=== PATIENT | female | born 1945 | race Caucasian/White ===

== ENCOUNTER 2017-01-09 19:12 | Inpatient (IN) | payer OTHER ==
[~2017-01-09] VITALS: Ht 154.9 cm; Wt 51.7 kg
[~2017-01-09 19:12] MED LIST: ACET-5634 PO; BACTO TP; CLON1TAB PO; Dressing, Gauze TP; FLUO-387 PO; PARO40TA1 PO; SOLI5TAB PO; TIZA4CAP PO; TRAZ-286 PO; [UNRECOGNIZED DRUG - CODE] TD
[2017-01-09 19:21] VITALS: BP 147/87
[2017-01-09] MEDS ORDERED: NACL 0.9% 1,000 ML IV ONE (19:50)
[2017-01-09] MEDS ORDERED: MORPHINE SULFATE 4 MG/ML SYR IVP ONE (19:50)
[2017-01-09 20:20] LABS: APPEARANCE,URINE CLEAR (CLEAR); BILIRUBIN,URINE NEGATIVE (NEGATIVE); BLOOD, URINE NEGATIVE (NEGATIVE); COLOR,URINE YELLOW (YELLOW); LEUKOCYTE ESTERASE ,URINE NEGATIVE (NEGATIVE); NITRITE, URINE NEGATIVE (NEGATIVE); UGLUCOSE NEGATIVE (NEGATIVE)
[2017-01-09 20:21] LABS: BASOPHILS # (AUTO) 0.1 K/uL (0.00-0.22); BASOPHILS % (AUTO) 1.4 % (0.0-2.0); EOSINOPHILS # (AUTO) 0.1 K/uL (0-0.4); EOSINOPHILS % (AUTO) 1.7 % (0.0-4.0); HEMATOCRIT 41.5 % (36-48); HEMOGLOBIN 13.4 g/dL (12.0-16.0); LYMPHOCYTES # (AUTO) 1.3 K/uL (2.5-16.5); LYMPHOCYTES % (AUTO) 20.7 % (20.5-51.1); MEAN CORPUSCULAR HEMOGLOBIN 28 pg (27-31); MEAN CORPUSCULAR HGB CONC 32 g/dL (33-37); MEAN CORPUSCULAR VOLUME 87 fL (80-94); MONOCYTES # (AUTO) 0.4 K/uL (0.8-1.0); MONOCYTES % (AUTO) 7.2 % (1.7-9.3); NEUTROPHILS # (AUTO) 4.2 K/uL (1.8-7.7); PLATELET COUNT (AUTO) 123 K/uL (140-450); RED BLOOD CELL COUNT(AUTO) 4.75 MIL/uL (4.20-5.40); RED CELL DISTRIBUTION WIDTH 13.6 % (11.6-13.7); WHITE BLOOD COUNT (AUTO) 6.1 K/uL (4.8-10.8)
[2017-01-09] MEDS ORDERED: diphenhydrAMINE 50 MG/ML VIAL IVP ONE (20:25)
[2017-01-09 20:34] LABS: ALBUMIN 3.4 g/dL (3.4-5.0); AMYLASE 37 U/L (25-115); ANION GAP 3.1 (8-16); ASPARTATE AMINOTRANSFERASE 18 U/L (15-37); CARBON DIOXIDE 39.2 mmol/L (21-32); CHLORIDE 100 mmol/L (98-107); CREATININE 0.6 mg/dL (0.6-1.3); GLUCOSE 138 mg/dL (74-106); LIPASE 47 U/L (73-393); POTASSIUM 4.3 mmol/L (3.5-5.1); SODIUM SERUM 138 mmol/L (136-145); TOTAL BILIRUBIN 0.3 mg/dL (0.0-1.0); UREA NITROGEN, BLOOD 15 mg/dL (7-18)
[2017-01-09] MEDS: NACL 0.9% 1,000 ML IV SCH (22:37)
[2017-01-09] MEDS ORDERED: ONDANSETRON 4 MG/2 ML VIAL IVP PRN (22:40)
[2017-01-09] MEDS ORDERED: ACETAMINOPHEN 325 MG TAB PO PRN (22:40)
[2017-01-09 23:11] LABS: PROTHROMBIN TIME 9.6 secs (10.8-13.4)
[2017-01-09 23:20] LABS: CHOL/HDL RATIO 1.7 (1-4.5); FREE T4 (FREE THYROXINE) 0.94 ng/dL (0.76-1.46); PHOSPHORUS 4.2 mg/dL (2.5-4.9); THYROID STIMULATING HORMONE 0.42 uIU/mL (0.34-3.74)
[2017-01-10] VITALS: BP 139/93
[2017-01-10] MEDS ORDERED: SODIUM PHOSPHATE 118 ML ENEM RC PRN (00:10)
[2017-01-10] MEDS: NACL 0.9% 1,000 ML IV SCH (00:35)
[2017-01-10] MEDS: HYDROcodone/APAP 7.5/325 MG 1 TAB PO PRN ×2 (03:05→09:08)
[2017-01-10] MEDS ORDERED: PNEUMOCOCCAL VACCINE 23 MCG/0.5 ML VIAL IMVAC SCH ×2 (03:50→05:50)
[2017-01-10] MEDS ORDERED: INFLUENZA VIRUS VACCINE QUAD 0.5 ML SYR IMVAC SCH ×2 (03:50→05:50)
[2017-01-10 04:00] VITALS: BP 127/73
[2017-01-10 07:33] LABS: BASOPHILS # (AUTO) 0.2 K/uL (0.00-0.22); EOSINOPHILS # (AUTO) 0.2 K/uL (0-0.4); EOSINOPHILS % (AUTO) 3.4 % (0.0-4.0); HEMATOCRIT 37.4 % (36-48); HEMOGLOBIN 12.3 g/dL (12.0-16.0); LYMPHOCYTES # (AUTO) 1.3 K/uL (2.5-16.5); LYMPHOCYTES % (AUTO) 23.4 % (20.5-51.1); MEAN CORPUSCULAR HEMOGLOBIN 29 pg (27-31); MEAN CORPUSCULAR HGB CONC 33 g/dL (33-37); MEAN CORPUSCULAR VOLUME 87 fL (80-94); MONOCYTES # (AUTO) 0.5 K/uL (0.8-1.0); MONOCYTES % (AUTO) 8.8 % (1.7-9.3); NEUTROPHILS # (AUTO) 3.5 K/uL (1.8-7.7); NEUTROPHILS % (AUTO) 61.4 % (42.2-75.2); PLATELET COUNT (AUTO) 117 K/uL (140-450); RED CELL DISTRIBUTION WIDTH 13.2 % (11.6-13.7); WHITE BLOOD COUNT (AUTO) 5.7 K/uL (4.8-10.8)
[2017-01-10 08:00] VITALS: BP 127/76
[2017-01-10 08:01] LABS: ANION GAP 3.5 (8-16); CARBON DIOXIDE 37.3 mmol/L (21-32); CHLORIDE 102 mmol/L (98-107); CREATININE 0.5 mg/dL (0.6-1.3); GLUCOSE 101 mg/dL (74-106); POTASSIUM 3.8 mmol/L (3.5-5.1); SODIUM SERUM 139 mmol/L (136-145); UREA NITROGEN, BLOOD 10 mg/dL (7-18)
[2017-01-10 08:04] LABS: MAGNESIUM 1.7 mg/dL (1.8-2.4); PHOSPHORUS 3.1 mg/dL (2.5-4.9)
[2017-01-10] MEDS: DOCUSATE SODIUM 100 MG GELCAP PO SCH ×2 (09:08→20:40)
[2017-01-10 12:00] VITALS: BP 129/84
[2017-01-10] MEDS: KETOROLAC 15 MG/ML VIAL IVP PRN ×2 (12:40→18:21)
[2017-01-10] MEDS ORDERED: MAG SULF 2000 MG/WATER PREMIX 50 ML IV SCH (15:00)
[2017-01-10 16:17] VITALS: BP 145/85
[2017-01-10] MEDS ORDERED: MSCON30 PO (17:10)
[2017-01-10] MEDS ORDERED: MORPHINE PO (17:13)
[2017-01-10] MEDS ORDERED: Morphine (17:13)
[2017-01-10] MEDS ORDERED: BISACODYL 10 MG SUPP RC SCH (18:55)
[2017-01-10] MEDS ORDERED: SODIUM PHOSPHATE 118 ML ENEM RC SCH (19:00)
[2017-01-10 20:00] VITALS: BP 127/78
[2017-01-10] MEDS ORDERED: MORPHINE TAB ER 30 MG TABER PO SCH (20:20)
[2017-01-10] MEDS ORDERED: ZOLPIDEM 5 MG TAB PO SCH (20:50)
[2017-01-10] MEDS ORDERED: MORPHINE TAB ER 30 MG TABER PO ONE (21:28)
[2017-01-11] VITALS: BP 118/70
[2017-01-11] MEDS: KETOROLAC 15 MG/ML VIAL IVP PRN (00:55)
[2017-01-11] MEDS: NACL 0.9% 1,000 ML IV SCH (01:30)
[2017-01-11 04:00] VITALS: BP 125/72
[2017-01-11 07:23] LABS: BASOPHILS # (AUTO) 0.2 K/uL (0.00-0.22); BASOPHILS % (AUTO) 4.1 % (0.0-2.0); EOSINOPHILS # (AUTO) 0.2 K/uL (0-0.4); EOSINOPHILS % (AUTO) 3.2 % (0.0-4.0); HEMATOCRIT 36.2 % (36-48); HEMOGLOBIN 11.8 g/dL (12.0-16.0); LYMPHOCYTES # (AUTO) 1.3 K/uL (2.5-16.5); LYMPHOCYTES % (AUTO) 24.4 % (20.5-51.1); MEAN CORPUSCULAR HEMOGLOBIN 28 pg (27-31); MEAN CORPUSCULAR HGB CONC 33 g/dL (33-37); MEAN CORPUSCULAR VOLUME 87 fL (80-94); MONOCYTES # (AUTO) 0.7 K/uL (0.8-1.0); MONOCYTES % (AUTO) 12.2 % (1.7-9.3); NEUTROPHILS % (AUTO) 56.1 % (42.2-75.2); PLATELET COUNT (AUTO) 149 K/uL (140-450); RED BLOOD CELL COUNT(AUTO) 4.17 MIL/uL (4.20-5.40); RED CELL DISTRIBUTION WIDTH 12.9 % (11.6-13.7); WHITE BLOOD COUNT (AUTO) 5.4 K/uL (4.8-10.8)
[2017-01-11 07:49] VITALS: BP 126/81
[2017-01-11 08:10] LABS: CREATININE 0.5 mg/dL (0.6-1.3); GLUCOSE 71 mg/dL (74-106); UREA NITROGEN, BLOOD 13 mg/dL (7-18)
[2017-01-11 08:15] LABS: CHLORIDE 103 mmol/L (98-107); POTASSIUM 3.8 mmol/L (3.5-5.1)
[2017-01-11 08:30] LABS: CARBON DIOXIDE 32.7 mmol/L (21-32); SODIUM SERUM 137 mmol/L (136-145)
[2017-01-11] MEDS ORDERED: TAMSULOSIN 0.4 MG CAP PO SCH (08:30)
[2017-01-11 08:31] LABS: ANION GAP 5.1 (8-16)
[2017-01-11] MEDS ORDERED: NICOTINE TRANSD SYS 21 MG/24 HR PATCH TD SCH (09:00)
[2017-01-11] MEDS ORDERED: MORPHINE TAB ER 30 MG TABER PO SCH (09:00)
[2017-01-11] MEDS: DOCUSATE SODIUM 100 MG GELCAP PO SCH (09:33)
[2017-01-11] MEDS ORDERED: BISACODYL 10 MG SUPP RC SCH (10:44)
[2017-01-11 12:00] VITALS: BP 115/72
[2017-01-11] MEDS ORDERED: MAGNESIUM CITRATE 300 ML BTL PO SCH (13:15)
[2017-01-11] MEDS ORDERED: MORPHINE SULFATE ORAL SOLN 2 MG/ML UDC PO PRN (13:20)
[2017-01-11] MEDS ORDERED: DOCU-299 PO (13:37)
== END 2017-01-11 15:10 | disposition home or self-care (01) | DRG 391 ==
LOC: MED 19:12 → MTU 22:42
PROVIDERS: ADMIT Family Medicine Sports Medicine; ATTEND Family Medicine Sports Medicine
DX: K59.03 Drug induced constipation (principal); N17.0 Acute kidney failure with tubular necrosis; L89.151 Pressure ulcer of sacral region, stage 1; D69.6 Thrombocytopenia, unspecified; Z99.81 Dependence on supplemental oxygen; K83.1 Obstruction of bile duct; F03.90 Unspecified dementia, unspecified severity, without behavioral disturbance, psychotic disturbance, mood disturbance, and anxiety; N28.1 Cyst of kidney, acquired; E83.42 Hypomagnesemia; T39.8X5A Adverse effect of other nonopioid analgesics and antipyretics, not elsewhere classified, initial encounter; J44.9 Chronic obstructive pulmonary disease, unspecified; F41.9 Anxiety disorder, unspecified; F32.9 Major depressive disorder, single episode, unspecified; N20.0 Calculus of kidney; F17.210 Nicotine dependence, cigarettes, uncomplicated; G89.29 Other chronic pain; Z83.3 Family history of diabetes mellitus; Z80.3 Family history of malignant neoplasm of breast
CPT/HCPCS: 36415; 71010; 74000; 76705; 80048; 80053; 81003; 82150; 83036; 83690; 83735; 83880; 84100; 84439; 84443; 84484; 85025; 85610; 85730; 87081; 90658; 90732; 93005; 96361; 96374; 96375; 99285; J1200; J1885; J2270; J3475; J7030; Q0092

== ENCOUNTER 2017-04-09 15:25 | Inpatient (IN) | payer OTHER ==
--- NOTE | 2017-04-06 20:16 | NUR ---
PATIENT REFUSED SCD EDUCATION GIVEN THAT ITS TO PREVENT BLOOD CLOTS AND ALSO GOOD FOR CIRCULATION PATIENT REFUSED. Addendum: 04/18/17 at 0604 by Liliana Faith LVN WRONG DATE ACTUAL DATE 04/17/17
[~2017-04-09] VITALS: Ht 154.9 cm; Wt 48.1 kg
[~2017-04-09 15:25] MED LIST changes: -ACET-5634 PO; -BACTO TP; -CLON1TAB PO; +DOCU-299 PO; -Dressing, Gauze TP; -FLUO-387 PO; +MORPHINE PO; +MSCON30 PO; -PARO40TA1 PO; -SOLI5TAB PO; -TIZA4CAP PO; -TRAZ-286 PO; -[UNRECOGNIZED DRUG - CODE] TD
--- NOTE | 2017-04-09 15:25 | NUR ---
Patient BIBA ACLS, transferred to bed 1. RN evaluating patient at bedside.
[2017-04-09 15:30] VITALS: BP 102/66
--- NOTE | 2017-04-09 15:48 | NUR ---
71 YO FEMALE BIB EMS FROM HOME FOR ACUTE ONSET OF SOB, CHRONIC SMOKER. PT WITH MILD RETRACTIONS, NASAL FLARING, REPORTS SOB WITH MILD EXERTION. SCIENCE AND OPERATIONS OFFICER COUGH X 1 WEEK, PREGOGRESSIVELY GETTING WORSE. LS-CLR, BUT RHOCHI COUGH HEARD AT BEDSIDE. PTUNABLE TO COUGH ANY PHLEGM. PT DENIES ANY FEVERS.CHILLS, BUT ADMITS TO BEING A HEAVY SMOKER. ALTHOUGH WARNED OF HER OXYGEN AND SMOKING, PT STILL REFUSES TO STOP SMOKING. RT AT BEDSIDE FOR TX. PT DENIES ANY CHEST PAIN, SKIN W/D/I
[2017-04-09] MEDS ORDERED: ALBUTEROL SULFATE/IPRATROPIU 3 ML SOL IH ONE (15:50)
[2017-04-09 16:10] LABS: BASOPHILS # (AUTO) 0.1 K/uL (0.00-0.22); BASOPHILS % (AUTO) 0.7 % (0.0-2.0); EOSINOPHILS # (AUTO) 0.1 K/uL (0-0.4); EOSINOPHILS % (AUTO) 1.7 % (0.0-4.0); HEMATOCRIT 38.7 % (36-48); HEMOGLOBIN 12.7 g/dL (12.0-16.0); LYMPHOCYTES # (AUTO) 1.3 K/uL (2.5-16.5); LYMPHOCYTES % (AUTO) 16.3 % (20.5-51.1); MEAN CORPUSCULAR HEMOGLOBIN 28 pg (27-31); MEAN CORPUSCULAR HGB CONC 33 g/dL (33-37); MEAN CORPUSCULAR VOLUME 85 fL (80-94); MONOCYTES # (AUTO) 0.8 K/uL (0.8-1.0); MONOCYTES % (AUTO) 10.5 % (1.7-9.3); NEUTROPHILS # (AUTO) 5.4 K/uL (1.8-7.7); NEUTROPHILS % (AUTO) 70.8 % (42.2-75.2); PLATELET COUNT (AUTO) 315 K/uL (140-450); RED BLOOD CELL COUNT(AUTO) 4.54 MIL/uL (4.20-5.40); RED CELL DISTRIBUTION WIDTH 14.3 % (11.6-13.7); WHITE BLOOD COUNT (AUTO) 7.7 K/uL (4.8-10.8)
[2017-04-09 16:23] LABS: PROTHROMBIN TIME 9.4 secs (10.8-13.4)
[2017-04-09 16:29] LABS: ALBUMIN 3.1 g/dL (3.4-5.0); ANION GAP 9.2 (8-16); ASPARTATE AMINOTRANSFERASE 18 U/L (15-37); CARBON DIOXIDE 34.8 mmol/L (21-32); CHLORIDE 104 mmol/L (98-107); CREATININE 0.5 mg/dL (0.6-1.3); GLUCOSE 99 mg/dL (74-106); SODIUM SERUM 143 mmol/L (136-145); TOTAL BILIRUBIN 0.2 mg/dL (0.0-1.0); UREA NITROGEN, BLOOD 30 mg/dL (7-18)
--- NOTE | 2017-04-09 16:53 | NUR ---
PT AND HER FAMILY UPDATED ON PLAN OF CARE, VERBALIZED UNDERSTANDING.
[2017-04-09] MEDS: NACL 0.9% 1,000 ML IV SCH (17:36)
[2017-04-09] MEDS ORDERED: ONDANSETRON 4 MG/2 ML VIAL IVP PRN (17:40)
[2017-04-09] MEDS ORDERED: ALBUTEROL SULFATE/IPRATROPIU 3 ML SOL IH PRN (17:40)
[2017-04-09] MEDS ORDERED: ACETAMINOPHEN 325 MG TAB PO PRN (17:40)
[2017-04-09] MEDS ORDERED: DOCUSATE SODIUM 100 MG GELCAP PO PRN (17:40)
--- NOTE | 2017-04-09 18:30 | NUR ---
RECEIVED REPORT FROM HEMANT SAAVEDRA. PATIENT BROUGHT TO UNIT VIA [facility] FROM ER. ON NASAL CANNULA AT 2L. RESPIRATORY EFFORT EVEN AND UNLABORED. NO SIGNS AND SYMPTOMS OF ACUTE DISTRESS NOTED AT THIS TIME. PATIENT WALKED FROM [facility] TO HER BED, TOLERATED WELL. VITAL SIGNS ARE STABLE. HAS IV 20G TO RIGHT AC ON SALINE LOCK. ORIENTED PATIENT TO ROOM, AND EXPLAINED CALL LIGHT TO HER. BED IN LOWEST POSITION, SIDE RAILS UP X2, CALL LIGHT PLACED WITHIN REACH. DISCUSSED PLAN OF CARE WITH PATIENT AND SHE VERBALIZED UNDERSTANDING. WILL CONTINUE TO MONITOR.
[2017-04-09 18:47] LABS: CHOL/HDL RATIO 1.6 (1-4.5); FREE T4 (FREE THYROXINE) 1.02 ng/dL (0.76-1.46); MAGNESIUM 2.1 mg/dL (1.8-2.4); PHOSPHORUS 3.7 mg/dL (2.5-4.9); THYROID STIMULATING HORMONE 0.74 uIU/mL (0.34-3.74)
--- NOTE | 2017-04-09 19:21 | NUR ---
Patient to be transferred to [facility], [place]. Is being transferred due to . Receiving facility has accepting physician and available space. ER physician has signed transfer form. Patient or responsible constitution party has agreed to transfer and signed form. Patient belongings inventoried and will be sent with patient. Copy of nursing notes, lab reports, EKG, Physicians Orders and X-rays to be sent with patient. Report called to at receiving facility.
--- NOTE | 2017-04-09 19:25 | NUR ---
RECEIVED FROM AM RN IN BED FOR ADMISSION. AWAKE AND ALERT. ABLE TO VERBALIZE NEEDS WELL. DX. COPD EXACERBATION. TELEMETRY MONITORING. WITH HX. DEMENTIA. CARE PLANS DISCUSSED WITH HER FOR THE NIGHT AND ORIENTED TO SURROUNDINGS, CARE GIVERS AND CALL LIGHT. PT. WITH NO SOB AT THIS TIME. WITH 02 AT 2 LPM/NC. 02 SAT AT 97 %. AFEBRILE.
--- NOTE | 2017-04-09 19:25 | NUR ---
ENDORSED PATIENT TO CURRICULUM DEVELOPER RN FOR CONTINUITY OF CARE. PATIENT IN STABLE CONDITION.
[2017-04-09] MEDS: ALBUTEROL SULFATE/IPRATROPIU 3 ML SOL IH SCH (19:35)
[2017-04-09] MEDS ORDERED: MORPHINE TAB ER 30 MG TABER PO SCH (20:30)
[2017-04-09] MEDS ORDERED: methylPREDNISolone SS 125 MG/2 ML VIAL ONE (21:08)
[2017-04-09 21:15] VITALS: BP 107/72
[2017-04-09] MEDS: methylPREDNISolone SS 125 MG/2 ML VIAL IVP SCH (21:27)
[2017-04-09] MEDS: ZOLPIDEM 5 MG TAB PO PRN (21:38)
[2017-04-09] MEDS ORDERED: MORPHINE SULFATE ORAL SOLN 2 MG/ML UDC PO PRN (22:55)
--- NOTE | 2017-04-09 23:07 | NUR ---
DAUGHTER IN HERE AND BROUGHT PT.S LIQUID MORPHINE MEDICATION. RESIDENT MD BARRIENTOS AWARE OF IT.
--- NOTE | 2017-04-09 23:21 | NUR ---
STILL AWAKE AND URINATED IN BEDPAN. ASSISTED. DAUGHTER WENT HOME AND LEFT MEDICINE MORPHINE LIQUID IN HERE. SHOWED IT TO RESIDENT. AWARE.
[2017-04-10 00:21] VITALS: BP 110/76
[2017-04-10] MEDS ORDERED: methylPREDNISolone SS 125 MG/2 ML VIAL IVP SCH (02:00)
--- NOTE | 2017-04-10 02:19 | NUR ---
PT.STILL AWAKE AND WATCHING TV. REFUSING TO GO TO SLEEP. ENCOURAGED TO SLEEP. PT. SHOUTED AND STATED MIND YOUR OWN BUSINESS. "GET THE HELL OUT OF HERE"
--- NOTE | 2017-04-10 04:00 | NUR ---
STILL AWAKE . NEEDS ATTENDED TO. CALL LIGHT WITH IN REACH. REFUSING TO USE CALL LIGHT BUT SHOUTS OUT LOUD FOR " N U R S E."
[2017-04-10] MEDS: methylPREDNISolone SS 125 MG/2 ML VIAL IVP SCH ×4 (04:50→21:34)
[2017-04-10 05:35] VITALS: BP 131/86
--- NOTE | 2017-04-10 07:02 | NUR ---
PT. STILL AWAKE AND NOT SLEEP. SHE STATED THAT SHE SLEEPS ONLY APPROXIMATELY 2HOURS IN THE NIGHT. REFUSED TO HAVE SEQUENTIALS IN PLACE"NO" ..WILL TRY AGAIN TODAY. WILL ENDORSE TO THE NEXT RN FOR CONTINUITY OF CARE.
--- NOTE | 2017-04-10 07:22 | NUR ---
RECEIVED PT IN BED. AWAKE. ALERT ORIENTEDX3 WITH EPISODES OF CONFUSION RELATED TO HX OF DEMENTIA. NO SOB NOTED. ON 02 AT 2LPM NC. DENIES ANY PAIN OR DISCOMFORT AT THIS TIME. PT ON BEDREST. ASSISTANT COUNSEL ASSISTED PT WITH BEDPAN USE. OFFLOAD BONY PROMINENCE. SAFETY PRECAUTION IN PLACE. CALL LIGHT WITHIN REACH.
[2017-04-10 07:53] VITALS: BP 146/86
[2017-04-10 07:56] LABS: BASOPHILS # (AUTO) 0.1 K/uL (0.00-0.22); BASOPHILS % (AUTO) 0.9 % (0.0-2.0); EOSINOPHILS % (AUTO) 0.2 % (0.0-4.0); HEMATOCRIT 39.3 % (36-48); HEMOGLOBIN 12.8 g/dL (12.0-16.0); LYMPHOCYTES # (AUTO) 0.4 K/uL (2.5-16.5); LYMPHOCYTES % (AUTO) 6.5 % (20.5-51.1); MEAN CORPUSCULAR HEMOGLOBIN 28 pg (27-31); MEAN CORPUSCULAR HGB CONC 33 g/dL (33-37); MEAN CORPUSCULAR VOLUME 85 fL (80-94); MONOCYTES % (AUTO) 0.4 % (1.7-9.3); NEUTROPHILS # (AUTO) 6.2 K/uL (1.8-7.7); PLATELET COUNT (AUTO) 279 K/uL (140-450); RED BLOOD CELL COUNT(AUTO) 4.61 MIL/uL (4.20-5.40); RED CELL DISTRIBUTION WIDTH 13.8 % (11.6-13.7); WHITE BLOOD COUNT (AUTO) 6.7 K/uL (4.8-10.8)
[2017-04-10 08:14] LABS: CARBON DIOXIDE 26.7 mmol/L (21-32); CHLORIDE 100 mmol/L (98-107); CREATININE 0.7 mg/dL (0.6-1.3); GLUCOSE 143 mg/dL (74-106); POTASSIUM 4.7 mmol/L (3.5-5.1); SODIUM SERUM 138 mmol/L (136-145); UREA NITROGEN, BLOOD 23 mg/dL (7-18)
[2017-04-10 08:19] LABS: MAGNESIUM 1.9 mg/dL (1.8-2.4); PHOSPHORUS 4.4 mg/dL (2.5-4.9)
[2017-04-10] MEDS: ALBUTEROL SULFATE/IPRATROPIU 3 ML SOL IH SCH ×3 (08:42→19:00)
--- NOTE | 2017-04-10 08:42 | NUR ---
AWAKE AND ALERT RESPONSIVE TO MARKET GARDENER VERBAL COMMANDS TOLERATED INCENTIVE SPIROMETRY THERAPY WELL WITHOUT ADVERSE REACTIONS NOTE ENCOURAGED PATIENT WITH ACKNOWLEDGEMENT TO USE EVERY 1-2 HOURS WHILE AWAKE
[2017-04-10] MEDS: MORPHINE TAB ER 30 MG TABER PO SCH ×2 (09:10→21:35)
[2017-04-10] MEDS: NACL 0.9% 1,000 ML IV SCH (10:24)
--- NOTE | 2017-04-10 10:52 | NUR ---
PT COMPLAINED OF HER IV LINE ON LEFT HAND WAS HURTING HER. NO SIGNS AND SYMPTOMS OF INFILTRATION NOTED. FLUSHING GOOD. BUT PT INSIST OF GETTING A NEW IV. IV LINE INSERTED ON LEFT FA G 22.
[2017-04-10 11:28] VITALS: BP 134/86
[2017-04-10] MEDS: MORPHINE SULFATE ORAL SOLN 2 MG/ML UDC PO PRN ×2 (12:06→14:50)
--- NOTE | 2017-04-10 12:08 | NUR ---
MORPHINE ORAL PAMELA GIVEN TO PT DUE TO BACK PAIN 11/04. ADMINISTERED 2.5MG/ 1.25ML DISCARDED 3.75 ML. YOLANDA PHARMACIST AWARE. VERIFIED BY NURSE NUÑEZ.
--- NOTE | 2017-04-10 14:10 | NUR ---
URINE SPECIMEN COLLECTED AND SENT TO LAB.
[2017-04-10 14:39] LABS: BARBITURATE, URINE NEG. ng/ml (NEG <=200); BENZODIAZEPINE, URINE NEG. ng/mL (NEG <=200); CANNABINOID, URINE NEG. ng/mL (NEG <=50); COCAINE, URINE NEG. ng/mL (NEG <=300); OPIATE, URINE POS. ng/mL (NEG <=2000); PHENCYCLIDINE SCREEN,URINE NEG. ng/mL (NEG <=25)
[2017-04-10 14:41] LABS: APPEARANCE,URINE CLEAR (CLEAR); BILIRUBIN,URINE NEGATIVE (NEGATIVE); BLOOD, URINE 1+ (NEGATIVE); COLOR,URINE YELLOW (YELLOW); LEUKOCYTE ESTERASE ,URINE NEGATIVE (NEGATIVE); NITRITE, URINE NEGATIVE (NEGATIVE); UGLUCOSE NEGATIVE (NEGATIVE)
[2017-04-10 14:49] LABS: RBC,URINE 11-20 (MOD) /HPF (0-5); WBC,URINE 0-5 (RARE) /HPF (0-5)
[2017-04-10 15:32] VITALS: BP 122/63
[2017-04-10] MEDS: HYDROcodone/APAP 7.5/325 MG 1 TAB PO PRN (15:56)
--- NOTE | 2017-04-10 16:00 | NUR ---
SOME CONFUSION NOTED. PT KEEPS ON GETTING OUT OF BED, LOOKING AT HER STUFF INSIDE HER BEDSIDE TABLE. REORIENTATION EFFECTIVE AT THIS TIME.
--- NOTE | 2017-04-10 18:31 | NUR ---
PT KEPT CLEAN, DRY AND COMFORTABLE. NEEDS ATTENDED. WILL ENDORSE TO NEXT SHIFT. NO SOB NOTED. MAINTAINED ON O2 AT 2LPM NC. DENIES ANY PAIN OR DISCOMFORT AT THIS TIME. PT ON STABLE CONDITION. FOR CONTINUITY OF CARE.
--- NOTE | 2017-04-10 19:20 | NUR ---
RECEIVED FROM AM RN IN BED AWAKE AND WATCHING TV. PT. ON BED ALARM . CALL LIGHT WITH IN REACH. PT. REMINDED TO CALL FOR ANY HELP SHE MAY NEED. NOTED WITH CONFUSION AT TIMES. NEW IVF SITE INTACT AND PATENT. NO INFILTRATION. TELEMETRY MONITORING. ON AT 2LPM/NC. NO SOB.
[2017-04-10 21:40] VITALS: BP 114/73
[2017-04-10] MEDS: ZOLPIDEM 5 MG TAB PO PRN (21:45)
[2017-04-11 00:02] VITALS: BP 130/66
[2017-04-11] MEDS: MORPHINE SULFATE ORAL SOLN 2 MG/ML UDC PO PRN ×4 (00:02→16:59)
--- NOTE | 2017-04-11 00:10 | NUR ---
PT. STILL AWAKE AND MEDICATED WITH PAIN RELIEVER AGAIN REQUESTED. PT. C/O CHRONIC BACK PAIN. PT. TALKING ON THE PHONE WITH DAUGHTER. PT. BEEN RESTLESS AND BEEN GOING OUT OF BED . GOES BRP BY HERSELF AND GOES TO THE DOOR AND CALLS NURSE ALL THE TIME. PT. DEMENTIA AND STATES SHE FORGOT WHAT SHE NEEDS RE-ORIENTED AT ALL TIMES. PT. NO SOB.
[2017-04-11] MEDS: NACL 0.9% 1,000 ML IV SCH ×2 (00:50→13:56)
--- NOTE | 2017-04-11 03:38 | NUR ---
PT. WALKING AROUND THE NURSING STATION . REFUSED TO LISTEN AND PT. PULLED OUT HER IVF TUBING. REFUSED AT THIS TIME TO HAVE NEW IVF SITE INSERTED . WILL RE-TRY TOMORROW. INFORMED MD RESIDENT ABOUT IT. AWARE.
[2017-04-11 04:02] VITALS: BP 136/82
--- NOTE | 2017-04-11 04:10 | NUR ---
PT. SITTING UP IN BED AT THIS TIME AND WATCHING TV. NO COMPLAINTS DONE. REFUSES TO SLEEP.
[2017-04-11] MEDS: methylPREDNISolone SS 40 MG/ML VIAL IVP SCH ×3 (05:03→20:24)
--- NOTE | 2017-04-11 06:38 | NUR ---
PT. SITTING AT THE EDGE OF HER BED. REFUSED TO GO BACK IN BED AND ALWAYS GOING IN AND OUT OF HER ROOM. "I DO NOT SLEEP" . ENCOURAGED TO SLEEP.
[2017-04-11 07:02] LABS: BASOPHILS # (AUTO) 0.1 K/uL (0.00-0.22); BASOPHILS % (AUTO) 0.5 % (0.0-2.0); EOSINOPHILS # (AUTO) 0.1 K/uL (0-0.4); EOSINOPHILS % (AUTO) 0.9 % (0.0-4.0); HEMATOCRIT 36.9 % (36-48); HEMOGLOBIN 12.3 g/dL (12.0-16.0); LYMPHOCYTES # (AUTO) 0.5 K/uL (2.5-16.5); LYMPHOCYTES % (AUTO) 4.1 % (20.5-51.1); MEAN CORPUSCULAR HEMOGLOBIN 28 pg (27-31); MEAN CORPUSCULAR HGB CONC 33 g/dL (33-37); MEAN CORPUSCULAR VOLUME 84 fL (80-94); MONOCYTES # (AUTO) 0.2 K/uL (0.8-1.0); MONOCYTES % (AUTO) 1.5 % (1.7-9.3); NEUTROPHILS # (AUTO) 10.6 K/uL (1.8-7.7); PLATELET COUNT (AUTO) 297 K/uL (140-450); RED BLOOD CELL COUNT(AUTO) 4.41 MIL/uL (4.20-5.40); RED CELL DISTRIBUTION WIDTH 13.8 % (11.6-13.7); WHITE BLOOD COUNT (AUTO) 11.5 K/uL (4.8-10.8)
[2017-04-11 07:32] LABS: CARBON DIOXIDE 29.8 mmol/L (21-32); CHLORIDE 101 mmol/L (98-107); CREATININE 0.6 mg/dL (0.6-1.3); GLUCOSE 125 mg/dL (74-106); POTASSIUM 4.8 mmol/L (3.5-5.1); SODIUM SERUM 138 mmol/L (136-145); UREA NITROGEN, BLOOD 26 mg/dL (7-18)
[2017-04-11 08:00] VITALS: BP 130/89
[2017-04-11 08:00] LABS: MAGNESIUM 1.9 mg/dL (1.8-2.4); PHOSPHORUS 3.3 mg/dL (2.5-4.9)
--- NOTE | 2017-04-11 08:00 | NUR ---
PATIENT WITH BREAKFAST TRAY NO SOB NOTED GREETING CARD EDITOR TO ATTEMPT HHN THERAPY AT A LATER TIME
[2017-04-11] MEDS: ALBUTEROL SULFATE/IPRATROPIU 3 ML SOL IH SCH ×3 (08:41→21:04)
--- NOTE | 2017-04-11 10:12 | NUR ---
PATIENT HAS BEEN SCREENED AND CATEGORIZED LOW NUTRITION RISK. PT WILL BE SEEN WITHIN 7 DAYS OF ADMISSION. 04/15/[address]
[2017-04-11] MEDS: MORPHINE TAB ER 30 MG TABER PO SCH ×2 (10:25→20:25)
--- NOTE | 2017-04-11 12:33 | NUR ---
AWAKE AND ALERT NO SOB NOTED PATIENT WITH LUNCH TRAY AT THI TIME CREDIT AND COLLECTION MANAGER TO ATTEMPT HHN THERAPY AT A LATER TIME
[2017-04-11 13:00] VITALS: BP 123/85
--- NOTE | 2017-04-11 13:20 | NUR ---
ECHO AT BEDSIDE.
--- NOTE | 2017-04-11 13:37 | NUR ---
DAUGHTER AT BEDSIDE, ARUN CEDENO AT BEDSIDE.
--- NOTE | 2017-04-11 13:42 | NUR ---
ECHO PROCEDURE IN PROGRESS AWAKE AND ALERT NO EVIDENCE OF PULMONARY DISTRESS NOTED PATIENT ON SUPPLEMENTAL OXYGEN AT 2 LPM VIA NC RP TO ATTEMPT HHN THERAPY AT A LATER TIMR
[2017-04-11] MEDS ORDERED: QUEtiapine FUMARATE 25 MG TAB PO SCH (14:00)
--- NOTE | 2017-04-11 14:02 | NUR ---
MORPHINE GIVEN FOR BACK PAIN AND GENERAL BODY PAIN PER ORDER.
[2017-04-11] MEDS: LORazepam 0.5 MG TAB PO PRN ×2 (14:03→17:44)
[2017-04-11] MEDS: NICOTINE TRANSD SYS 21 MG/24 HR PATCH TD SCH (14:08)
[2017-04-11 16:00] VITALS: BP 109/80
--- NOTE | 2017-04-11 17:44 | NUR ---
PT REPEATEDLY GETTING OUT OF BED, REPEATEDLY ASKS FOR MORPHINE, PT HYPER VERBAL WITH MULTIPLE REPEATED QUESTIONS, PT REORIENTED, PT INSTRUCTED TO STAY IN BED, BED ALARM ON, IV SITE REINFORCED WITH CLING WRAP, SITE WNL, PT REMAINS ON O2 2L, ATIVAN GIVEN PER PRN ORDER. WILL CONTINUE TO MONITOR.
--- NOTE | 2017-04-11 19:30 | NUR ---
REPORT GIVEN TO COMMUNICATIONS OPERATOR NURSE, PT IN STABLE CONDITION.
--- NOTE | 2017-04-11 19:32 | NUR ---
RECEIVED PT FROM SADAF RN PT AAOX2 CONFUSED BUT FOLLOW COMMANDS H ON LEFT FA PATENT INFUSING WELL IV FLUIDS, ON TELEMETRY ST, ON 04 29 LTS VIA NC NOT RESP DISTRESS NOTED INITIAL ASSESSMENT DONE
[2017-04-11 20:00] VITALS: BP 139/93
[2017-04-11] MEDS: QUEtiapine FUMARATE 25 MG TAB PO SCH (20:25)
--- NOTE | 2017-04-11 21:00 | NUR ---
PT CONFUSED SHE DOES NOT STAY QUIET IN HER ROOM SHE WALK AROUND THE UNIT ON TELEMETRY ST
[2017-04-11] MEDS: ZOLPIDEM 5 MG TAB PO PRN (22:40)
[2017-04-12] VITALS: BP 113/50
--- NOTE | 2017-04-12 | NUR ---
PT AWAKE ALL MEDIC WAS GIVEN ORDER SHE IS KEEPING WALKING AROUND THE UNIT NOT SOB NOTED PT CONFUSED ON TELE AT
[2017-04-12] MEDS: LORazepam 0.5 MG TAB PO PRN ×2 (01:04→12:12)
--- NOTE | 2017-04-12 03:00 | NUR ---
PT AWAKE WALKING ON HER ROOM ON TELE SR PT CONFUSED ON TELE ST, VOIDING WELL
[2017-04-12 04:00] VITALS: BP 126/86
[2017-04-12] MEDS: methylPREDNISolone SS 40 MG/ML VIAL IVP SCH ×3 (05:19→20:28)
[2017-04-12 06:25] LABS: BASOPHILS % (AUTO) 0.3 % (0.0-2.0); EOSINOPHILS # (AUTO) 0.1 K/uL (0-0.4); EOSINOPHILS % (AUTO) 0.7 % (0.0-4.0); HEMATOCRIT 34.9 % (36-48); HEMOGLOBIN 11.7 g/dL (12.0-16.0); LYMPHOCYTES # (AUTO) 0.5 K/uL (2.5-16.5); LYMPHOCYTES % (AUTO) 4.6 % (20.5-51.1); MEAN CORPUSCULAR HEMOGLOBIN 28 pg (27-31); MEAN CORPUSCULAR HGB CONC 34 g/dL (33-37); MEAN CORPUSCULAR VOLUME 84 fL (80-94); MONOCYTES # (AUTO) 0.4 K/uL (0.8-1.0); MONOCYTES % (AUTO) 4.1 % (1.7-9.3); NEUTROPHILS # (AUTO) 9.2 K/uL (1.8-7.7); NEUTROPHILS % (AUTO) 90.3 % (42.2-75.2); PLATELET COUNT (AUTO) 303 K/uL (140-450); RED BLOOD CELL COUNT(AUTO) 4.15 MIL/uL (4.20-5.40); WHITE BLOOD COUNT (AUTO) 10.3 K/uL (4.8-10.8)
--- NOTE | 2017-04-12 06:30 | NUR ---
PT HAS BEEN AWAKE ALL NIGHT AND AT THIS TIME SHE COME BACK TO SLEEP ON SLEEP ON SR PT WILL BE ENDORSED TO DAY SHIFT NURSE
--- NOTE | 2017-04-12 07:20 | NUR ---
REPORT RECEIVED FROM WORKER'S COMPENSATION CLAIMS EXAMINER NURSE MAGNOLIA PEREZ SLEEPING QUIETLY IN NAD, RESP EVEN UNLABORED ON 2L NC O2, SKIN WARM DRY COLOR WNL, IVF INFUSING AT 35ML/HR, SITE WNL, PT AROUSES EASILY BY VOICE, DENIES PAIN OR DISCOMFORT, PT FALLS ASLEEP IMMEDIATELY, PLAN OF CARE REVIEWED, CALL HUA WITHIN REACH, SIDE RAILS UP, BED LOCKED IN LOW POSITION, WILL CONTINUE TO MONITOR.
--- NOTE | 2017-04-12 07:55 | NUR ---
RT AT BEDSIDE.
[2017-04-12] MEDS: ALBUTEROL SULFATE/IPRATROPIU 3 ML SOL IH SCH ×3 (07:59→19:00)
[2017-04-12 08:00] VITALS: BP 113/74
[2017-04-12] MEDS: MORPHINE TAB ER 30 MG TABER PO SCH ×2 (10:03→20:29)
[2017-04-12] MEDS: QUEtiapine FUMARATE 25 MG TAB PO SCH (10:03)
--- NOTE | 2017-04-12 10:06 | NUR ---
PT SLEEPING QUIETLY IN NAD, RESP EVEN UNLABORED ON 2L NC O2, SKIN WARM DRY COLOR WNL, AROUSES EASILY BY VOICE, AM MEDS GIVEN, PT [place] WELL, OFFERED BREAKFAST, WILL CONTINUE TO MONITOR.
[2017-04-12] MEDS ORDERED: QUEtiapine FUMARATE 25 MG TAB PO SCH (11:18)
[2017-04-12 12:00] VITALS: BP 132/72
[2017-04-12] MEDS: NACL 0.9% 1,000 ML IV SCH (12:01)
--- NOTE | 2017-04-12 12:14 | NUR ---
PT AWAKE ALERT NOW, DISORIENTED AND APPEARS IRRITATED AND FRUSTRATED WITH RAISED VOICE, PT THINKS SHE IS IN HER OWN HOME, ASKING FOR HER BROTHER AND MOTHER, PT RE-ORIENTED, SOMEWHAT CALMED DOWN, UP OUT OF BED WITH MINIMAL ASSIST, AMBULATES TO BATHROOM WITH STEADY GAIT, DUE MEDS GIVEN, PT ASKS FOR "SOMETHING FOR MY NERVES", PRN ATIVAN GIVEN AT THIS TIME, CALL MELITA MIKE REACH, SIDE RAIL UP, BED ALARM ON, BED LOCKED IN LOW POSITION, WILL CONTINUE TO MONITOR.
--- NOTE | 2017-04-12 14:00 | NUR ---
PT SLEEPING QUIETLY IN NAD, RESP EVEN UNLABORED, AROUSES TO VOICE, ASKED FOR MILK, PT TOOK ALL 236ML OF MILK WITHOUT PROBLEM, PT RETURNED BACK TO SLEEP, PT REMAINS ON RIVERBOAT CAPTAIN, IVF INFUSING, SITE CLEAR, CALL HUA WITHIN REACH, SIDE RAILS UP, BED ALARM ON, WILL CONTINUE TO MONITOR.
--- NOTE | 2017-04-12 15:02 | NUR ---
ROUNDED ON PT, PT SLEEPING QUIETLY IN NAD, RESP EVEN UNLABORED ON 2L NC, SKIN WARM DRY COLOR WNL, PT REMAINS ON DRIER OPERATOR HEAD, WILL CONTINUE TO MONITOR.
[2017-04-12] MEDS: NICOTINE TRANSD SYS 21 MG/24 HR PATCH TD SCH (15:37)
[2017-04-12 16:00] VITALS: BP 100/63
--- NOTE | 2017-04-12 16:00 | NUR ---
VITAL SIGN TAKEN, PT SLEEPING QUIETLY IN NAD, RESP EVEN UNLABORED ON 2L NC, SKIN WARM DRY COLOR WNL, PT REMAINS ON TECHNICAL SALES SPECIALIST, NO IMMEDIATE NEEDS AT THIS TIME, WILL CONTINUE TO MONITOR.
--- NOTE | 2017-04-12 17:43 | NUR ---
PT SLEEPING QUIETLY IN NAD, RESP EVEN UNLABORED, SKIN WARM DRY COLOR WNL, PT AROUSABLE BY VOICE, DENIES ANY IMMEDIATE NEEDS, WHEN ASKED IF SHE NEEDS TO GO TO THE BATHROOM, PT REPLIED " IN A MINUTE!, LET ME WAKE UP FIRST!," THEN PT FELL BACK ASLEEP, PT REMAINS ON CONFIGURATION RELEASE MANAGER, NC O2 AT 2L, IVF INFUSING WELL, SITE WNL, BED LOCKED IN LOW POSITION, CALL HUA VARGHESEIN REACH, SIDE RAILS UP X2, WILL CONTINUE TO MONITOR.
--- NOTE | 2017-04-12 18:18 | NUR ---
PT NOW AWAKE, SITTING UP EATING DINNER, SPEAKS CLEARLY, RESP EVEN UNLABORED ON 2L NC, SKIN WARM DRY COLOR WNL, WILL CONTINUE TO MONITOR.
--- NOTE | 2017-04-12 19:30 | NUR ---
REPORT GIVEN TO COAT AGENT NURSE, PT IN STABLE CONDITION.
--- NOTE | 2017-04-12 19:31 | NUR ---
RECEIVED REPORT FROM DAY NURSE SADAF RN, PT IN STABLE CONDITION. NO S/S OF DISTRESS NOTED. PT IS AAOX2, PT AWARE HER NAME AND SHE IS IN THE HOSPITAL BUT PT IS CONFUSED AND ASKED WHERE HER IS AND IT IS NOT LIKE HIM TO NOT BE HERE TO DINNER. I REORIENTED PT TO THE ROOM, UPDATED BOARD. PT IS ON O2 AT 2L VIA NC. SKIN IS WARM AND DRY TO TOUCH, INITIAL ASSESSMENT COMPLETED. PLAN OF CARE DISCUSSED WITH PT, VERBALIZED UNDERSTANDING AT THIS TIME. ALL SAFETY PRECAUTIONS MET, CALL LIGHT WITHIN REACH, WILL CONTINUE TO MONITOR
[2017-04-12 20:00] VITALS: BP 95/59
[2017-04-12] MEDS: QUEtiapine FUMARATE 100 MG TAB PO SCH (20:28)
--- NOTE | 2017-04-12 21:04 | NUR ---
PT STATED SHE NEEDS A BEDPAN TO URINATE. GAVE PT THE BEDPAN. PT HAD 50 ML OF CLEAR YELLOW URINE
[2017-04-13] VITALS: BP 112/76
--- NOTE | 2017-04-13 00:15 | NUR ---
ABG DONE WITH NO INCIDENT.
[2017-04-13] MEDS: NACL 0.9% 1,000 ML IV SCH ×2 (01:00→12:48)
[2017-04-13] MEDS: MORPHINE SULFATE ORAL SOLN 2 MG/ML UDC PO PRN ×3 (05:06→20:02)
[2017-04-13] MEDS: methylPREDNISolone SS 40 MG/ML VIAL IVP SCH ×3 (05:06→21:30)
[2017-04-13 06:39] LABS: BASOPHILS % (AUTO) 0.4 % (0.0-2.0); EOSINOPHILS # (AUTO) 0.1 K/uL (0-0.4); EOSINOPHILS % (AUTO) 0.7 % (0.0-4.0); HEMATOCRIT 36.2 % (36-48); HEMOGLOBIN 11.8 g/dL (12.0-16.0); LYMPHOCYTES # (AUTO) 0.4 K/uL (2.5-16.5); LYMPHOCYTES % (AUTO) 3.6 % (20.5-51.1); MEAN CORPUSCULAR HEMOGLOBIN 28 pg (27-31); MEAN CORPUSCULAR HGB CONC 33 g/dL (33-37); MEAN CORPUSCULAR VOLUME 86 fL (80-94); MONOCYTES # (AUTO) 0.6 K/uL (0.8-1.0); MONOCYTES % (AUTO) 5.7 % (1.7-9.3); NEUTROPHILS # (AUTO) 9.7 K/uL (1.8-7.7); NEUTROPHILS % (AUTO) 89.6 % (42.2-75.2); PLATELET COUNT (AUTO) 279 K/uL (140-450); RED CELL DISTRIBUTION WIDTH 14.5 % (11.6-13.7); WHITE BLOOD COUNT (AUTO) 10.8 K/uL (4.8-10.8)
--- NOTE | 2017-04-13 07:32 | NUR ---
GAVE REPORT TO SONY HARRELL AT THE BEDSIDE FOR CONTINUITY OF CARE, PT IN STABLE CONDITION. NO S/S OF DISTRESS NOTED
--- NOTE | 2017-04-13 07:32 | NUR ---
ASSUMED CONTINUITY OF CARE. NO SIGNS AND SYMPTOMS OF ACUTE DISTRESS NOTED. INITIAL ASSESSMENT DONE. RE-ORIENTED EVENTS AND SURROUNDINGS. HOB ELEVATED AND KEEP COMFORTABLE. FALL PRECAUTION APPLIED. CALL LIGHT WITHIN REACH.
[2017-04-13 07:35] LABS: ANION GAP 10.7 (8-16); CARBON DIOXIDE 28.6 mmol/L (21-32); CHLORIDE 106 mmol/L (98-107); CREATININE 0.6 mg/dL (0.6-1.3); GLUCOSE 124 mg/dL (74-106); POTASSIUM 4.3 mmol/L (3.5-5.1); SODIUM SERUM 141 mmol/L (136-145); UREA NITROGEN, BLOOD 27 mg/dL (7-18)
[2017-04-13 08:00] VITALS: BP 108/77
[2017-04-13] MEDS ORDERED: BECL0.0464 INH ×2 (08:23)
[2017-04-13] MEDS ORDERED: PRED10TA5 PO (08:23)
[2017-04-13] MEDS: QUEtiapine FUMARATE 100 MG TAB PO SCH ×2 (08:46→21:30)
[2017-04-13] MEDS: MORPHINE TAB ER 30 MG TABER PO SCH ×2 (08:46→21:29)
[2017-04-13] MEDS: ALBUTEROL SULFATE/IPRATROPIU 3 ML SOL IH SCH ×3 (09:03→19:44)
--- NOTE | 2017-04-13 09:29 | NUR ---
ASSISTED USED OF BEDPAN. TOLERATED WELL. NO SOB, NOTED. VOIDED WITH 150 ML CLEAR YELLOW URINE OUTPUT. CALL LIGHT WITHIN REACH.
--- NOTE | 2017-04-13 09:45 | NUR ---
Patient's Plan of Care was discussed and reviewed with HANDLE AND VENT MACHINE OPERATOR: SONY ELIZABETH.
--- NOTE | 2017-04-13 10:07 | NUR ---
CALLED PT. TISHA ULLOA AT REGARDING PT. D/C. PER PT. TISHA MONTESINOS, THEY CAN'T TAKE CARE OF PT. OR THEY CAN'T RECEIVE PT. AT HOME. INFORMED CHARGE NURSE TRENT TRIVEDI -KERI. PER CHARGE NURSE, DR. IBRAHIM AND STIFF NECK LOADER WAS AWARE OF IT.
[2017-04-13 12:00] VITALS: BP 102/69
--- NOTE | 2017-04-13 12:00 | NUR ---
I attempted to contact Patient's daughter Amena Medina at to discuss and gather patient's information. No response and I left patient's daughter Amena a voice mail MSG to return a call [facility].
[2017-04-13] MEDS: NICOTINE TRANSD SYS 21 MG/24 HR PATCH TD SCH (14:05)
--- NOTE | 2017-04-13 15:00 | NUR ---
Patient's daughter Amena Cruz call me back form . Amena Cruz was really upset and defensive stating to me " Hello are you the social services counselor?; I am calling you because I was asked and told that you wanted to know how much money my mother recieves monthly from social security" I introduced my self to Mrs. cruz letting her know that the purpose of my call earlier was to get history and information from her about patient, to asses Patient's services and needs and be able to assist patient upon discharge. Per daughter Amena " This woman has been a terrible mother and person, she is an alcoholic, addict that has mental illness and had live and give us a terrible life" She can't not live by her self, and her boyfriend is currently at [facility] unit. I discuss with Mrs. Amena cruz that Patient is on need of assistance and possible placement therefore; it will be important that family, her and other two sister's can be on a conference call with me and supervisor photostat to coordinate efforts on providing patient with assistance. Per Amena Cruz " None of us are able to care for her, you need to find a place to put her" I informed Mrs. Amena Cruz that family in this case "Children" must be cooperative and join responsibility to find level of care and assistance to patient and the only way to achieve success is by them participating on meeting, providing patient's information, financial and other services provided that can served as information to provide a level of care or assisted living placement. Mrs. Beckwith agreed and stated " ok But I will call and talk to my sisters and coordinate this conference call or meeting for tomorrow; However it will have to be late evening maybe 5:00pm because they are very busy and work late" "I will call you and let you know time we are all available" Mrs. Beckwith Provided sister's names and occupation but will not provide contact numbers. Per Amena Adam, Sister's are Damaris who works for [employer] and Lia is a human resources expert. I thank Mrs. Amena Cruz for information and ask her to call me back with time to meet or have conference call. She stated that patient receives about $845.00 monthly and that she just find out information and wanted to provide it to me; she also agreed to call me back with a time to meet and ended call
--- NOTE | 2017-04-13 15:30 | NUR ---
DR. THOMAS WENT INSIDE PT. ROOM AND SPOKE TO PT..
--- NOTE | 2017-04-13 19:12 | NUR ---
BEDSIDE REPORT GIVEN TO VIANCA CARSON. IVF INFUSING WELL. IN STABLE CONDITION.
--- NOTE | 2017-04-13 19:13 | NUR ---
RECEIVED HANDOFF REPORT FROM ERIKA HARRELL. PATIENT A&OX2. PATIENT KNOWS SHE IS IN THE HOSPITAL AND STATES SHE IS HERE DUE TO PAIN AND LOSS OF MEMORY. PATIENT DENIES PAIN. PATIENT ON 2L O2 NC. IV SITE PATENT AND INTACT. SAFETY MEASURES ENSURED. CALL LIGHT WITHIN REACH. NO SIGNS OR SYMPTOMS OF ACUTE DISTRESS NOTED. WILL CONTINUE TO MONITOR.
[2017-04-13 20:00] VITALS: BP 106/71
--- NOTE | 2017-04-13 20:05 | NUR ---
PATIENT STATES PAIN. MEDICATED ORDERED. BRIAN SAAVEDRA WITNESSED OVERAGE DISCARD.
--- NOTE | 2017-04-13 21:31 | NUR ---
PM MEDS GIVEN WITH EDUCATION. PATIENT TOLERATE WELL. PATIENT VERBALIZED UNDERSTANDING. NO SIGNS OR SYMPTOMS OF ACUTE DISTRESS NOTED. SAFETY MEASURES ENSURED. CALL LIGHT WITHIN REACH. WILL CONTINUE TO MONITOR.
[2017-04-13] MEDS: ZOLPIDEM 5 MG TAB PO PRN (21:37)
[2017-04-14] VITALS: BP 144/90
[2017-04-14] MEDS: LORazepam 0.5 MG TAB PO PRN (00:06)
--- NOTE | 2017-04-14 00:16 | NUR ---
PATIENT AWAKE IN BED. PATIENT STATES HAVING TROUBLE SLEEPING AND STATES HAVING ANXIETY. MD AWARE. PER ORDER ATIVAN GIVEN. NO SIGNS OR SYMPTOMS OF ACUTE DISTRESS. NASAL CANNULA INTACT AT 2L O2. CALL LIGHT WITHIN REACH. WILL CONTINUE TO MONITOR.
[2017-04-14] MEDS: MORPHINE SULFATE ORAL SOLN 2 MG/ML UDC PO PRN ×3 (01:26→14:41)
[2017-04-14] MEDS: HYDROcodone/APAP 7.5/325 MG 1 TAB PO PRN (03:37)
--- NOTE | 2017-04-14 04:07 | NUR ---
PATIENT AWAKE IN BED WATCHING TV. NO SIGNS OR SYMPTOMS OF ACUTE DISTRESS NOTED. CALL LIGHT WITHIN REACH. WILL CONTINUE TO MONITOR.
[2017-04-14] MEDS: methylPREDNISolone SS 40 MG/ML VIAL IVP SCH ×3 (05:12→20:26)
--- NOTE | 2017-04-14 07:17 | NUR ---
ENDORSED PLAN OF CARE TO AM RN. PATIENT IN STABLE CONDITION
--- NOTE | 2017-04-14 07:30 | NUR ---
RECEIVED BEDSIDE REPORT FROM THREE DIMENSIONAL ART INSTRUCTOR NURSE. PATIENT AWAKE, ALERT, OX2 TO NAME AND PLACE. PATIENT ON 2L O2 NC. NO S/S OF ACUTE DISTRESS NOTED. IV SITE PATENT, INTACT AND INFUSING WELL. SAFETY MEASURES ENSURED. INITIAL ASSESSMENT DONE.BED IN LOWEST POSITION,CALL LIGHT WITHIN REACH. WILL CONTINUE TO MONITOR
[2017-04-14] MEDS: ALBUTEROL SULFATE/IPRATROPIU 3 ML SOL IH SCH ×3 (07:39→19:30)
[2017-04-14 08:00] VITALS: BP 142/90
[2017-04-14] MEDS: QUEtiapine FUMARATE 100 MG TAB PO SCH ×2 (08:37→20:25)
[2017-04-14] MEDS: MORPHINE TAB ER 30 MG TABER PO SCH ×2 (08:37→20:25)
--- NOTE | 2017-04-14 10:50 | NUR ---
PATIENT C/O PAIN ON THE BACK. MEDICATED ORDERED. NO ACUTE DISTRESS NOTED. PT IS ON 2L O2 VIA NC.
[2017-04-14] MEDS: NACL 0.9% 1,000 ML IV SCH (12:48)
[2017-04-14] MEDS: NICOTINE TRANSD SYS 21 MG/24 HR PATCH TD SCH (13:39)
--- NOTE | 2017-04-14 14:00 | NUR ---
Amena Cruz call me stating that she had a hard time getting in contact with me; because they keep sending her in the wrong phone or voicemail. Amena cruz stated that she just wanted to confirm and let me know that she and sister's will be meeting with me at 17:00. I provided her with the number again and confirm I will be here and available for our meeting at 17:00 i also requested her to bring documentation needed for patient to confirm and apply to medical. Per Amena patient has medi-liz and medicare as well social security resources. Daughter also stated that patient do not own any property and the mobile home patient lives in is not patient's property. I thank her for information and ended call.
--- NOTE | 2017-04-14 18:00 | NUR ---
I met with Patient daughter's Amena Lia, and Damaris to gather Patient's information, documents needed to verify assistance and resources receiving from Social Security, Medicare and Medi-liz. According to Amena Medina Patient has both insurances and that information should be able be verified by [facility]. I informed them that information currently showing for patient is only medicare but I will request pillowcase cleaner to verify and update information if in fact patient do have Medi-Liz insurance and search for placement can be managed soon. I also explained to patient's daughter's the importance of creating a plan for patient's care after discharge from [facility]; discuss possible options but, needed involvement and responsibility from them to care for patient or come with collaboration and possible financial contribution to care for their mother if patients resources are not sufficient or her insurance will not cover. All three daughters stated that " they are not willing to take any legal or financial responsibility for patient". "They are only willing to assist and provide documents required for patient to apply to services, and will like to be lead to the direction they need to place patient into a facility that could provide level of care she is requiring" however; they are been really clear and will not commit or even able to take patient in any of their home" I acknoledged their concerns with situation, and respectfully listen to some of their history letting them know clearly and respectfully that [facility] will not resolved their issue with patient. But will be willing to work together in a team effort to get patient with services she needs. but in order to do so their efforts to cooperated and take responsibility is expected. They all agreed to provide what is required form them and to collaborate to make placement possible soon. I inform them that I will document our conversation and provide my supervisor cutting department Anabella of our discussion and she will follow up with them if any other documents, information for patient is needed. They all agreed and I ended meeting.
--- NOTE | 2017-04-14 19:19 | NUR ---
RECEIVED HANDOFF REPORT FROM AM RN. PATIENT A&OX2. PATIENT KNOWS HER NAME AND THAT SHE IS IN THE HOSPITAL. PATIENT ORIENTED TO DATE AND TIME. PATIENT DENIES PAIN AT THIS TIME. NASAL CANNULA IS PATENT AND INTACT AT 2L. NO SIGNS OR SYMPTOMS OF ACUTE DISTRESS NOTED. SAFETY MEASURES ENSURED. CALL LIGHT WITHIN REACH. WILL CONTINUE TO MONITOR.
--- NOTE | 2017-04-14 19:20 | NUR ---
BEDSIDE REPORT GIVEN TO MEMBERSHIP SECRETARY NURSE. IVF INFUSING WELL. PT IN STABLE CONDITION.
[2017-04-14 20:00] VITALS: BP 119/77
[2017-04-15] MEDS: HYDROcodone/APAP 7.5/325 MG 1 TAB PO PRN ×3 (02:42→22:22)
[2017-04-15] MEDS: methylPREDNISolone SS 40 MG/ML VIAL IVP SCH ×3 (05:07→21:23)
--- NOTE | 2017-04-15 07:25 | NUR ---
ENDORSED PLAN OF CARE TO AM RN. PATIENT IN STABLE CONDITION.
--- NOTE | 2017-04-15 07:26 | NUR ---
RECEIVED REPORT FROM RECORDER GRAVITY PROSPECTING NURSE VASU AT BEDSIDE FOR CONTINUITY OF CARE. PT IS AWAKE. INTRODUCED SELF AND UPDATED BOARD. PT IN STABLE CONDITION.
[2017-04-15] MEDS: ALBUTEROL SULFATE/IPRATROPIU 3 ML SOL IH SCH ×3 (07:27→20:31)
[2017-04-15 08:00] VITALS: BP 143/87
[2017-04-15] MEDS: NACL 0.9% 1,000 ML IV SCH (09:26)
[2017-04-15] MEDS: MORPHINE TAB ER 30 MG TABER PO SCH ×2 (09:26→21:23)
[2017-04-15] MEDS: QUEtiapine FUMARATE 100 MG TAB PO SCH ×2 (09:26→21:24)
--- NOTE | 2017-04-15 12:35 | NUR ---
CHECKED ON PT IN ROOM. EATING LUNCH TRAY RIGHT NOW. ADMINISTERED SCHEDULED MEDS. PT TOLERATED WELL. NO SIGNS OF DISTRESS. BED IN LOW POSITION, WHEELS LOCKED, CALL LIGHT WITHIN REACH. WILL CONTINUE TO MONITOR.
--- NOTE | 2017-04-15 13:04 | NUR ---
PATIENT WITH LUNCH TRAY NO SOB NOTED WOOD CASKET MAKER TO ATTEMPT HHN THERAPY AT A LATER TIME
[2017-04-15] MEDS: NICOTINE TRANSD SYS 21 MG/24 HR PATCH TD SCH (13:53)
--- NOTE | 2017-04-15 14:41 | NUR ---
PT WAS COMPLAINING OF ABD PAIN FROM CONSTIPATION AND STATED SHE FEELS NAUSEOUS. ADMINISTERED ZOFRAN AND COLACE. PT TOLERATED WELL. PT STATED THAT HER MOUTH WAS DRY AND ASKED FOR ICE CHIPS. GAVE ICE PT CHIPS. PT IS LYING IN BED. NO SIGNS OF DISTRESS. WILL CONTINUE TO MONITOR.
--- NOTE | 2017-04-15 15:39 | NUR ---
PT SLEEPING IN BED WITH VISIBLE RESPIRATIONS. NO SIGNS OF DISTRESS. BED IN LOW POSITION, BED ALARM ON, CALL LIGHT WITHIN REACH. WILL CONTINUE TO MONITOR.
--- NOTE | 2017-04-15 15:44 | NUR ---
04/15/2017 RD INITIAL ASSESSMENT COMPLETED PLEASE REFER TO NUTRITION ASSESSMENT UNDER CARE ACTIVITY FOR ESTIMATED NUTRITIONAL NEEDS. PT TO CONTINUE RECEIVING CURRNET DIET (REGULAR, BOOST TID) DIETARY IS PROVIDING APPROPXIMATELY 3500 KCALS AND 130 GM PRO/DAY, OF WHICH PT IS CONSUMING AN ESTIMATED 2975 KCALS AND 110 GM PRO/DAYMORE THAN ADE[address] RD TO FOLLOW-UP IN 5-7 DAYS PATIENT IS LOW RISK. MIK CASTELLANO, RD
[2017-04-15 16:00] VITALS: BP 109/67
--- NOTE | 2017-04-15 19:12 | NUR ---
ENDORSED PT TO PACKAGING LINE OPERATOR NURSE CHRIS AT BEDSIDE FOR CONTINUITY OF CARE. PT IS AWAKE AND ORIENTED EATING A SNACK. IN STABLE CONDITION.
--- NOTE | 2017-04-15 19:15 | NUR ---
RECEIVED PT FROM SAWYER RN PT IS AAOX3 RESTING ON BED IV ON LEFT FA INFUSING WELL NOT SOB NOTED INITIAL ASSESSMENT DONE
--- NOTE | 2017-04-15 21:30 | NUR ---
PT IS ASSISTED TO USED BEDPAN VOIDING WELL DENIES ANY PAIN OR DISCOMFORT
[2017-04-16] VITALS: BP 107/69
[2017-04-16] MEDS: ZOLPIDEM 5 MG TAB PO PRN (00:11)
--- NOTE | 2017-04-16 00:55 | NUR ---
PT SLEEPING WELL NOT DISTRESS NOTED REPOSITIONED Q2H IV ON LEFT FA INFUSING WELL
[2017-04-16] MEDS: HYDROcodone/APAP 7.5/325 MG 1 TAB PO PRN ×4 (03:30→21:28)
--- NOTE | 2017-04-16 04:15 | NUR ---
PT SLEEPING WELL AFTER PAIN MEDICATION GIVEN
[2017-04-16] MEDS: methylPREDNISolone SS 40 MG/ML VIAL IVP SCH ×3 (05:26→20:39)
--- NOTE | 2017-04-16 06:11 | NUR ---
PT RESTING ON BED REMAIN STABLE NOT SOB NOTED IV ONLEFT FA INFUSING WELL
--- NOTE | 2017-04-16 07:25 | NUR ---
RECEIVED REPORT FROM CHIEF TALENT OFFICER NURSE. PATIENT LYING IN BED SLEEPING, AROUSABLE BY VOICE. NO DISTRESS NOTED. RESPIRATIONS EVEN, UNLABORED, ON O2 2L/MIN VIA NC. DENIES ANY PAIN AT THIS TIME. AAOX2, CALM, COOPERATIVE, SKIN COLOR APPROPRIATE TO ETHNICITY, WARM TO TOUCH. SKIN IS INTACT. IV SITE IS INTACT, PATENT, AND INFUSING IVF PER ORDERS. LUNGS CTA ON ALL LOBES. ABDOMEN SOFT, NON-DISTENDED. REVIEWED PLAN OF CARE WITH PATIENT. PATIENT VERBALIZED UNDERSTANDING. SAFETY MEASURES IN PLACE, CALL LIGHT WITHIN REACH, FALL PREVENTIONS IN PLACE. WILL CONTINUE TO MONITOR.
[2017-04-16] MEDS: ALBUTEROL SULFATE/IPRATROPIU 3 ML SOL IH SCH ×3 (07:31→19:53)
[2017-04-16 08:00] VITALS: BP 112/66
[2017-04-16] MEDS: QUEtiapine FUMARATE 100 MG TAB PO SCH ×2 (08:55→20:39)
[2017-04-16] MEDS: MORPHINE TAB ER 30 MG TABER PO SCH ×2 (08:56→20:40)
[2017-04-16] MEDS: NACL 0.9% 1,000 ML IV SCH ×2 (08:57→13:03)
--- NOTE | 2017-04-16 08:58 | NUR ---
PATIENT SITTING IN BED WATCHING TV. NO DISTRESS NOTED. COMPLAINTS OF PAIN. SCHEDULED MEDICATIONS THAT HAS MS CONTIN DUE GIVEN. PATIENT TOLERATED WELL. ASSISTED PATIENT ON AND OFF BEDPAN. SAFETY MEASURES IN PLACE, CALL LIGHT WITHIN REACH. WILL CONTINUE TO MONITOR.
--- NOTE | 2017-04-16 11:22 | NUR ---
PATIENT LYING IN BED SLEEPING, AROUSABLE BY VOICE. NO DISTRESS NOTED. DENIES ANY PAIN. CONDITION UNCHANGED. WILL CONTINUE TO MONITOR.
--- NOTE | 2017-04-16 13:02 | NUR ---
PATIENT SITTING IN BED WATCHING TV. COMPLAINS OF 6/10 PAIN, MEDICATED WITH NORCO PER ORDERS. RESPIRATIONS EVEN, UNLABORED, ON O2 2L/MIN VIA NC. SCHEDULED MEDICATIONS DUE GIVEN. SAFETY MEASURES IN PLACE, CALL LIGHT WITHIN REACH. WILL CONTINUE TO MONITOR.
--- NOTE | 2017-04-16 13:21 | NUR ---
PT IS VERY AGITATED DOES NOT WANT TX NOW NO SIGNS OF DISTRESS NOTED
[2017-04-16] MEDS: NICOTINE TRANSD SYS 21 MG/24 HR PATCH TD SCH (15:40)
--- NOTE | 2017-04-16 15:46 | NUR ---
PATIENT SITTING IN BED WATCHING TV. NO DISTRESS NOTED DENIES ANY PAIN. CONTINUES TO BE CONFUSED AND FORGETFUL. SCHEDULED MEDICATIONS DUE GIVEN. SAFETY MEASURES IN PLACE, CALL LIGHT WITHIN REACH. WILL CONTINUE TO MONITOR.
[2017-04-16 15:53] VITALS: BP 99/68
--- NOTE | 2017-04-16 16:53 | NUR ---
PATIENT SITTING IN BED WATCHING TV. NO DISTRESS NOTED. PAIN WITHIN TOLERABLE AT THIS TIME. SAFETY MEASURES IN PLACE, CALL LIGHT WITHIN REACH. WILL CONTINUE TO MONITOR.
--- NOTE | 2017-04-16 17:35 | NUR ---
PATIENT SITTING IN BED. COMPLAINTS OF 6/10 LOW BACK PAIN, MEDICATED WITH NORCO. SAFETY MEASURES IN PLACE, CALL LIGHT WITHIN REACH. WILL CONTINUE TO MONITOR.
--- NOTE | 2017-04-16 18:09 | NUR ---
PATIENT LYING IN BED SLEEPING, AROUSABLE BY VOICE. NO DISTRESS NOTED. CONDITION UNCHANGED. WILL CONTINUE TO MONITOR.
--- NOTE | 2017-04-16 19:19 | NUR ---
GAVE REPORT TO CREDIT COLLECTOR NURSE FOR CONTINUITY OF CARE. PATIENT IN STABLE CONDITION.
--- NOTE | 2017-04-16 19:20 | NUR ---
RECEIVED PT IN STABLE CONDITION FROM AM NURSE. PT ON MED SURG. AWAKE,ALERT AND ORIENTED X4. ON O22L/NC. NO SOB NOTED. LUNG SOUNDS CLEAR. HAS IVF INFUSING WELL ON THE LT FA#22. CLEAR AND PATENT. ON BEDREST. USES BEDPAN. PLAN OF CARE DISCUSSED WITH PT. VERBALIZED UNDERSTANDING. BED ON LOW POSITION. FREQUENT ROUNDS NEEDED. CALL LIGHT PLACED WITHIN EASY REACH. WILL CONTINUE TO MONITOR.
--- NOTE | 2017-04-16 21:30 | NUR ---
PT WAS ASSISTED ON USING BEDPAN. VOIDED WELL.
--- NOTE | 2017-04-16 22:28 | NUR ---
MADE ROUNDS. PT IS ASLEEP. NO S/S OF ANY DISCOMFORT NOR DISTRESS NOTED.
[2017-04-16 23:56] VITALS: BP 102/70
[2017-04-17] MEDS: ZOLPIDEM 5 MG TAB PO PRN ×2 (01:32→22:11)
--- NOTE | 2017-04-17 01:32 | NUR ---
PT AWAKE, C/O INSOMNIA. SLEEPING PILL GIVEN ORDERED. WILL CONTINUE TO MONITOR.
--- NOTE | 2017-04-17 02:15 | NUR ---
PT AWAKE, REQUESTED FOR SOME MILK. PROVIDED 1 CAN OF REGULAR MILK. TOLERATED WELL.
--- NOTE | 2017-04-17 03:20 | NUR ---
PT REQUESTED FOR SOME BROTH. THEN LATER SOME CRACKERS. PROVIDED WITH BOTH.
[2017-04-17] MEDS: methylPREDNISolone SS 40 MG/ML VIAL IVP SCH ×3 (04:36→22:19)
[2017-04-17] MEDS ORDERED: MORPHINE SULFATE ORAL SOLN 2 MG/ML UDC PO PRN (06:10)
[2017-04-17] MEDS: HYDROcodone/APAP 7.5/325 MG 1 TAB PO PRN ×3 (06:40→23:13)
--- NOTE | 2017-04-17 07:10 | NUR ---
ENDORSED PT IN STABLE CONDITION TO AM NURSE.
--- NOTE | 2017-04-17 07:11 | NUR ---
RECEIVED REPORT FROM ALUMINUM POOL INSTALLER NURSE. PATIENT LYING IN BED SLEEPING, AROUSABLE BY VOICE. NO DISTRESS NOTED. RESPIRATIONS EVEN, UNLABORED, ON O2 2L/MIN VIA NC. DENIES ANY PAIN AT THIS TIME. AAOX2, FORGETFUL, CALM, COOPERATIVE, SKIN COLOR APPROPRIATE TO ETHNICITY, WARM TO TOUCH. SKIN IS INTACT. IV SITE IS INTACT, PATENT, AND INFUSING IVF PER ORDERS. LUNGS WHEEZING THROUGHOUT ALL LOBES. ABDOMEN SOFT, NON-DISTENDED. REVIEWED PLAN OF CARE WITH PATIENT. PATIENT VERBALIZED UNDERSTANDING. SAFETY MEASURES IN PLACE, CALL LIGHT WITHIN REACH, FALL PREVENTIONS IN PLACE. WILL CONTINUE TO MONITOR.
[2017-04-17 08:00] VITALS: BP 142/88
[2017-04-17] MEDS: ALBUTEROL SULFATE/IPRATROPIU 3 ML SOL IH SCH ×2 (08:09→12:40)
--- NOTE | 2017-04-17 08:09 | NUR ---
PT REFUSED HHN 3RD TIME EATING NO APPARENT DISTRESS
[2017-04-17] MEDS: LORazepam 0.5 MG TAB PO PRN ×3 (09:50→20:09)
[2017-04-17] MEDS: QUEtiapine FUMARATE 100 MG TAB PO SCH ×2 (09:50→20:10)
[2017-04-17] MEDS: MORPHINE TAB ER 30 MG TABER PO SCH ×2 (09:51→20:09)
--- NOTE | 2017-04-17 09:51 | NUR ---
PATIENT REPORTS FEELING ANXIOUS AND CANNOT BREATHE. O2 SAT IS AT 92%. RESPIRATORY THERAPIST CALLED FOR A BREATHING TREATMENT. SCHEDULED MEDICATIONS DUE GIVEN. ATIVAN GIVEN PER ORDERS. ANXIETY HAS DECREASED WITH BREATHING TREATMENT. SAFETY MEASURES IN PLACE, CALL LIGHT WITHIN REACH. WILL CONTINUE TO MONITOR.
[2017-04-17] MEDS: NACL 0.9% 1,000 ML IV SCH (12:47)
--- NOTE | 2017-04-17 12:54 | NUR ---
PATIENT SITTING IN BED WITH LUNCH TRAY IN FRONT. DENIES ANY PAIN. NO DISTRESS NOTED. PATIENT IS CURRENTLY RECEIVING A BREATHING TREATMENT. OTHER SCHEDULED MEDICATION DUE GIVEN. SAFETY MEASURES IN PLACE, CALL LIGHT WITHIN REACH. WILL CONTINUE TO MONITOR.
[2017-04-17] MEDS: NICOTINE TRANSD SYS 21 MG/24 HR PATCH TD SCH (14:38)
--- NOTE | 2017-04-17 15:00 | NUR ---
PATIENT SITTING IN BED WATCHING TV. NO DISTRESS NOTED. DENIES ANY PAIN. CONDITION UNCHANGED. SAFETY MEASURES IN PLACE, CALL LIGHT WITHIN REACH. WILL CONTINUE TO MONITOR.
[2017-04-17 16:00] VITALS: BP 123/85
--- NOTE | 2017-04-17 17:25 | NUR ---
PATIENT FELL DOWN ON THE FLOOR NEAR BEDSIDE TRYING TO GO TO THE BATHROOM. PATIENT SAID SHE FELT "STRONGER" AND FELT LIKE SHE WAS ABLE TO GO TO THE RESTROOM BY HERSELF. DID NOT PRESS CALL LIGHT. PATIENT WAS ALREADY ON THE FLOOR BY THE TIME NURSE RUSHED INTO THE ROOM FROM THE BED ALARM. PATIENT WAS FOUND LYING SUPINE ON THE FLOOR AFTER THE FALL. PATIENT HAS RIGHT HAND SKIN ABRASION FROM THE FALL, AND RIGHT ELBOW BRUISE. COMPLAINT OF HEAD HURTING AT THE TIME OF FALL. PROVIDED RE-EDUCATION ON PRESSING CALL LIGHT FOR ASSISTANCE TO BATHROOM AND TO NOT GET UP WITHOUT ASSISTANCE. PATIENT VERBALIZED UNDERSTANDING, REINFORCEMENT NEEDED. DR. HAMPTON NOTIFIED OF PATIENT'S FALL. DR. HAMPTON SAW PATIENT AND PERFORMED ASSESSMENT. CT SCAN OF HEAD ORDERED AND X-RAY OF RIGHT HAND ORDERED BY DR. THOMAS. AWAITING RESULTS. SAFETY MEASURES IN PLACE, CALL LIGHT WITHIN REACH. WILL CONTINUE TO MONITOR.
--- NOTE | 2017-04-17 18:30 | NUR ---
PATIENT'S FAMILY MEMBER AT BEDSIDE TALKING WITH PATIENT ASKING ABOUT FALL. TALKED WITH FAMILY MEMBERS AND ANSWERED ALL QUESTIONS REGARDING FALL. FAMILY VERBALIZED UNDERSTANDING. WILL CONTINUE TO MONITOR.
--- NOTE | 2017-04-17 19:35 | NUR ---
GAVE REPORT TO LAMINATION OPERATOR NURSE FOR CONTINUITY OF CARE. PATIENT IN STABLE CONDITION.
--- NOTE | 2017-04-17 19:35 | NUR ---
PATIENT IS CURRRENTLY RESTING IN BED WITH OXYGEN AT 2L VIA NASAL CANNULA PATIENT IS VERY FORGETFUL PATIENT CONSTANTLY FORGETS NAMES AND IS NOT ABLE TO TELL ME WHERE SHE IS OR WHAT DAY IS IT. PATIENT IS VERY VERBAL PATIENT EDUCATED TO USE THE CALL LIGHT PATIENT FORGETFUL NEEDS FURTHER TEACHING AND CONSTANT REINFORCENT.PATIENT ROOM IS ACROSS FROM THE NURSES STATION. FREQUENT VISUAL CHECKS WILL BE DONE. AT THIS TIME FAMILY AT BEDSIDE HAD QUESTIONS ABOUT PATIENT FALLING TODAY AND WERE ABLE TO TALK TO KERI RICHTER AM NURSE TAKING CARE OF THE PATIENT.I EXPLAINED TO THE PATIENT AND FAMILY HER DAUGHTER THAT I WILL PUT YELLOW SOCKS AND YELLOW WRIST BAND BECAUSE SHE IS AT RISK FOR FALLS AND WHEN THEY LEAVE THE BED ALARM NEEDS TO BE ON FOR HER SAFETY.FAMILY VERBALIZES UNDERSTANDING.WILL CONTINUE TO OBSERVE.
--- NOTE | 2017-04-17 19:36 | NUR ---
Patient's Plan of Care was discussed and reviewed with PRODUCTION PAINTER: EBONY CERVANTES
--- NOTE | 2017-04-17 19:37 | NUR ---
FAMILY LEFT AND THEY NOTIFIED ME SO PATIENT IS ON FALL PRECAUTIONS AND BED ALARM IS ON.PATIENT EDUCATED TO CALL FOR ASSISTANCE.
--- NOTE | 2017-04-17 19:39 | NUR ---
PATIENT ATTEMPTED TO GET UP AND OUT OF BED AND ASSISTED BACK IN BED BY KERI MEZA EDUCATED NOT TO GET OUT OF BED RN SUSANA NOTIFIED ME. I CHECKED ON THE PATIENT AND PATIENT IS CURRENTLY UPSET THAT HER BED HAS A BED ALARM I EXPLAINE TO HER THAT SHE FELL TODAY AND SHE NEEDS THE BED ALARM TO PREVENT FALLS AND IF SHE NEEDS HELP SHE NEEDS TO USE THE CALL LIGHT PATIENT UPSET CURSING AND CALLED ME A BRAT. PATIENT IS UPSET THAT SHE IS ON FALL PRECAUTIONS AND BED ALARM IS ON UNABLE TO COMPREHEND WHY BED ALARM IS TO BE KEPT ON AND PATIENT CANNOT RECALL WHEN SHE FELL TODAY OR WHERE SHE FELL." PATIENT ASSISTED TO BED.
[2017-04-17 20:00] VITALS: BP 125/82
--- NOTE | 2017-04-17 20:08 | NUR ---
PATIENT INSISTS THAT SHE WANTS TO GET UP TO GO TO THE BATHROOM BUT PATIENT GAIT IS NOT STEADY PATIENT BECAME AGGRESSIVE AND STUBBORN AND SUPERVISOR SLASHING DEPARTMENT LANEY AND RN ELVIA CAME TO TALK TO THE PATIENT WELL AND EXPLAINED WHY ITS BETTER TO USE THE BEDPAN AND I OFFERED THE BEDSIDE COMMODE PATIENT REFUSES. PATIENT WANTS TO GET OUT OF BED AND IS PULLING ON HER OXYGEN TUBING AND NOT FOLLOWING INSTRUCTIONS. FLORES EVANGELISTA CALLED SECURITY AND SECURITY CAME AND SPOKE WITH THE PATIENT WELL.PATIENT STILL NOT LISTENING TO INSTRUCTIONS AND REFUSED TO GO BACK IN BED.I CALLED RESIDENT BERNARDA GRIFFITH AND I TOLD HER ABOUT THE PATIENT BEHAVIOR AND SHE SAID SHE WILL COME AND SEE THE PATIENT.
--- NOTE | 2017-04-17 20:09 | NUR ---
AFTER THE RESIDENT SPOKE WITH THE PATIENT PATIENT FINALLY AGREED TO USE THE BEDSIDE COMMODE AND WAS ASSISTED BY MELANIE DAVISON. PATIENT WAS GIVEN NOURISHMENTS AND PATIENT IS CURRENTLY RESTING IN BED WITH BED ALARM ON.
--- NOTE | 2017-04-17 21:05 | NUR ---
EDUCATION GIVEN ON THE IMPORTANCE OF USING INCENTIVE SPIROMETER PATIENT DID A FEW BREATHING EXERCISED TOLERATED WELL NO SOB NOTED.
--- NOTE | 2017-04-17 21:12 | NUR ---
IM SITTING OUTSIDE THE PATIENT ROOM TO MONITOR THE PATIENT BETTER AND I HEAR THE BED ALARM SOUND AND I WENT TO SEE THE PATIENT PATIENT GOT OUT OF BED QUICKLY I TRY TO ASSIST THE PATIENT BACK TO BED BUT PATIENT INSISTS SHE WANTS TO GO TO THE [place] AND GET SOME ICE CREAM. KERI ALEJANDRA CHECKED THE REGRIGERATOR AND GOT AN ICE CREAM FOR THE PATIENT PATIENT WENT BACK TO BED AND PATIENT TOLD THE CHARGE NURSE,"I CANNOT PROMISE YOU I WILL NOT GET OUT OF BED." PATIENT EDUCATED AND CONSTANTLY REINFORCEMENT DONE ON SAFETY AND FALL PRECAUTIONS AND THAT SHE NEEDS TO USE THE CALL LIGHT FOR ASSISTANCE.
--- NOTE | 2017-04-17 21:13 | NUR ---
PATIENT RESTING IN BED TAKEN FOR CT SCAN AND IS BEING TAKEN DOWN FOR TEST.
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
--- NOTE | 2017-04-17 22:12 | NUR ---
PATIENT STATES,"I SUFFER FROM INSOMNIA AND I HAVEN'T BEEN ABLE TO GET SOME SLEEP AT NIGHT FOR TWO NIGHT NOW CAN I PLEASE HAVE A SLEEPING PILL.
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
--- NOTE | 2017-04-17 22:35 | NUR ---
PATIENT ASSISTED TO THE BEDSIDE COMMODE BY KERI COLEY AND KERI HELMS PATIENT INTERACTING AND DOING WELL WITH BOTH NURSES.
--- NOTE | 2017-04-17 23:36 | NUR ---
PATIENT WAS GIVEN A PEANUT BUTTER AND JELLY SANDWICH AND IS CURRENTLY EATING IT MILK GIVEN TO THE PATIENT.
--- NOTE | 2017-04-17 23:37 | NUR ---
BED ALARM ON .
--- NOTE | 2017-04-17 23:54 | NUR ---
PATIENT MONITORED PATIENT CURRENTLY SLEEPING. WILL CONTINUE TO MONITOR BED ALARM ON.
--- NOTE | 2017-04-18 00:57 | NUR ---
PATIENT SLEEPING MOVING AROUND IN BED BUT GOES BACK TO SLEEP.CONTINUES TO HAVE OXYGEN AT 2L NASAL CANNULA IN PLACE AND IVF INFUSING WELL NO INFILTRATION NOTED.WILL CONTINUE TO MONITOR.BED ALARM ON. I CONTINUE TO WATCHING OVER THE PATIENT RIGHT OUTSIDE HER ROOM WHERE I CAN SEE HER ALWAYS MAKING SURE SHE REMAINS SAFE.
--- NOTE | 2017-04-18 02:02 | NUR ---
PATIENT CONTINUES TO SLEEP MOVES A LITTLE IN BED TURNS AND FALLS BACK ASLEEP.IVF INFUSING WELL WILL CONTINUE TO MONITOR.BED ALARM ON.
[2017-04-18] MEDS: LORazepam 0.5 MG TAB PO PRN ×3 (02:54→17:30)
--- NOTE | 2017-04-18 02:54 | NUR ---
PATIENT WOKE UP AND ATTEMPTED TO GET OUT OF BED THE BED ALARM SOUNDED PATIENT IS DISORIENTED AND CONFUSED AND MELANIE VALDEZ ATTENDED TO THE PATIENT RIGHT AWAY AND [facility] I CAME AND THEN PATIENT STATES,"I WANT TO USE THE BEDSIDE COMMODE AND PATIENT WAS ASSISTED TO THE BEDSIDE COMMODE AND PATIENT URINATED SHE GAVE HERSELF PERICARE AND THEN SHE WENT BACK TO BED.PATIENT STATES,"PLEASE GIVE ME A TRANQUILIZER IM FEELING VERY ANXIOUS." I GAVE THE PATIENT SOME ATIVAN ORDERED AND THEN PATIENT STARTED TALKING TO MELANIE VALDEZ.
--- NOTE | 2017-04-18 03:15 | NUR ---
PATIENT REQUESTED FOR A TUNA SANDWICH AND ASSOCIATE PROFESSOR OF PHILOSOPHY KERI BENJAMIN WAS INFORMED AND SHE BROUGHT A TUNA SANDWICH FOR THE PATIENT PATIENT IS EATING HER TUNA SANDWICH.
--- NOTE | 2017-04-18 03:20 | NUR ---
PATIENT REFUSES SCD'S TO HER LEGS PATIENT STATES NO IT MAKES ME RESTLESS.
--- NOTE | 2017-04-18 03:26 | NUR ---
PATIENT IS ASKING FOR A BLANKET AND WAS GIVEN A WARM BLANKET. PATIENT STATES,"THANK YOU VERY MUCH IM SO HAPPY." BED ALARM ON.
--- NOTE | 2017-04-18 03:39 | NUR ---
PATIENT SLEEPING COMFORTABLY IN BED AT THIS TIME CONTINUES TO HAVE OXYGEN AT 2L VIA NASAL CANNULA AND IVF INFUSING WELL WILL CONTINUE TO OBSERVE BED ALARM ON.
--- NOTE | 2017-04-18 04:19 | NUR ---
PATIENT SLEEPING IN BED REPOSITIONS SELF IN BED.BED ALARM ON.
[2017-04-18] MEDS: methylPREDNISolone SS 40 MG/ML VIAL IVP SCH ×3 (04:44→20:30)
--- NOTE | 2017-04-18 05:53 | NUR ---
PATIENT IS CURRENTLY SLEEPING IN BED NEEDS MET CONTINUES TO BE MONITORED. IVF INFUSING WELL IV SITE PATENT.BED ALARM ON.
--- NOTE | 2017-04-18 07:04 | NUR ---
PATIENT DRINKING TEA WAITING FOR BREAKFAST I ASSISTED HER EARLER TO THE BEDSIDE COMMODE AND BACK IVF INFUSING WEL IV SITE IS PATENT.ENDORSED TO CEHN AT BEDSIDE PATIENT IN BED WITH BED ALARM ON.
--- NOTE | 2017-04-18 07:05 | NUR ---
RECEIVED REPORT FROM ITALIAN TEACHER NURSE. PATIENT SITTING IN BED COMFORTABLY, AROUSABLE BY VOICE. NO DISTRESS NOTED. RESPIRATIONS EVEN, UNLABORED, ON O2 2L/MIN VIA NC. DENIES ANY PAIN AT THIS TIME. AAOX2, FORGETFUL, CALM, COOPERATIVE, SKIN COLOR APPROPRIATE TO ETHNICITY, WARM TO TOUCH. SKIN IS INTACT. IV SITE IS INTACT, PATENT, AND INFUSING IVF PER ORDERS. LUNGS WHEEZING THROUGHOUT ALL LOBES. ABDOMEN SOFT, NON-DISTENDED. REVIEWED PLAN OF CARE WITH PATIENT. PATIENT VERBALIZED UNDERSTANDING. SAFETY MEASURES IN PLACE, CALL LIGHT WITHIN REACH, FALL PREVENTIONS IN PLACE, BED ALARM ON. WILL CONTINUE TO MONITOR.
[2017-04-18 07:17] VITALS: BP 120/80
[2017-04-18] MEDS: ALBUTEROL SULFATE/IPRATROPIU 3 ML SOL IH SCH ×4 (07:28→19:00)
[2017-04-18 08:00] VITALS: BP 142/95
--- NOTE | 2017-04-18 08:45 | NUR ---
PHYSICAL THERAPIST AT BEDSIDE WORKING WITH PATIENT. WILL CONTINUE TO MONITOR.
[2017-04-18] MEDS: MORPHINE TAB ER 30 MG TABER PO SCH ×2 (09:13→20:31)
[2017-04-18] MEDS: QUEtiapine FUMARATE 100 MG TAB PO SCH ×2 (09:13→20:31)
--- NOTE | 2017-04-18 09:16 | NUR ---
PATIENT LYING IN BED SLEEPING, AROUSABLE BY VOICE. NO DISTRESS NOTED. COMPLAINS OF PAIN. SCHEDULED PAIN MEDICATION DUE GIVEN. SAFETY MEASURES IN PLACE, BED ALARM ON, FALL PREVENTIONS IN PLACE. WILL CONTINUE TO MONITOR.
--- NOTE | 2017-04-18 10:44 | NUR ---
PATIENT LYING IN BED SLEEPING, AROUSABLE BY VOICE. NO DISTRESS NOTED. DENIES ANY PAIN AT THIS TIME. SAFETY MEASURES IN PLACE, CALL LIGHT WITHIN REACH. BED ALARM ON, BSC NEXT TO BED. WILL CONTINUE TO MONITOR.
--- NOTE | 2017-04-18 11:25 | NUR ---
PATIENT FEELING ANXIOUS. MEDICATED WITH NORCO. SAFETY MEASURES IN PLACE, CALL LIGHT WITHIN REACH, BED ALARM ON. WILL CONTINUE TO MONITOR.
[2017-04-18] MEDS: NACL 0.9% 1,000 ML IV SCH ×2 (12:10→18:53)
--- NOTE | 2017-04-18 12:22 | NUR ---
PATIENT SITTING IN BED WITH LUNCH TRAY IN FRONT. DENIES ANY PAIN AT THIS TIME. SCHEDULED MEDICATION DUE GIVEN. SAFETY MEASURES IN PLACE, CALL LIGHT WITHIN REACH. WILL CONTINUE TO MONITOR.
--- NOTE | 2017-04-18 12:53 | NUR ---
ASSISTED PATIENT TO BEDPAN. SAFETY MEASURES IN PLACE, CALL LIGHT WITHIN REACH, BED ALARM ON. WILL CONTINUE TO MONITOR.
[2017-04-18] MEDS: HYDROcodone/APAP 7.5/325 MG 1 TAB PO PRN ×2 (13:13→23:50)
--- NOTE | 2017-04-18 13:15 | NUR ---
PATIENT COMPLAINS OF PAIN, MEDICATED WITH NORCO. SAFETY MEASURES IN PLACE, CALL LIGHT WITHIN REACH. WILL CONTINUE TO MONITOR.
--- NOTE | 2017-04-18 13:37 | NUR ---
PT SLEEPING WITH NO SIGNS OF DISTRESS NOTED AT THIS TIME, NO BREATHING TX GIVEN
[2017-04-18] MEDS: NICOTINE TRANSD SYS 21 MG/24 HR PATCH TD SCH (14:11)
[2017-04-18 16:00] VITALS: BP 134/76
--- NOTE | 2017-04-18 16:45 | NUR ---
I CONTACTED [facility] AND PROVIDED PATIENT'S INFORMATION, STATUS, DISCUSS, NO MEDICAL AND DAUGHTERS LACK OF MOTIVATION CONTRIBUTING FOR PATIENT PLACEMENT AND CARE. MILTON REQUEST ME TO CALL PATIENTS DAUGTHER CONTACT AND STATED THAT SHE WILL BE CONTACTING [facility] TO DISCUSS PLAN AND POSSIBLE PLACEMENT IF THEY ARE WILLING TO COOPERATE PROVIDING NEEDED INFORMATION TO GET MEDI-LISY OR CONTRIBUTE IF PATIENT IS DENIED. i PROVIDE CONTACT INFORMATION AND TOLD MILTON THAT THIS ASSISTANT CUSTOMER SERVICE MANAGER WELL WILL CALL [employer] AND INFORM HER OF PATIENTS STATUS WHEN ENDING CALL.
--- NOTE | 2017-04-18 17:00 | NUR ---
I CALL PATIENT'S DAUGTHER [facility] AT TO DISCUSS PATIENT'S STATUS AND INFORM HER THAT MEDI-LISY IS NOT ACTIVE AND HAS BEEN CHECK BY WIND OPERATIONS SUPERVISOR AND CLIENT SERVICE SUPERVISOR, THEREFORE THAT LIMITS PATIENT'S ASSISTANCE WITH PLACEMENT. DISCUSS WITH PATIENT'S DAUGTHER THAT DUE TO LIMITATIONS AND RESOURCES DAUGTHERS NEED TO CREATE A PLAN AND LOOK FOR PLACEMENT ON THEIR OWN WELL POSSIBLY TALK ABOUT CONTRIBUTION TO PATIENT PLACEMENT AND NEXT LEVEL OF CARE. [facility] STATED THAT THERE IS NO WAY THAT THEY CAN TAKE PATIENT HOME WITH ANY OF THEM AND THAT THEY WILL NOT BE RESPONSIBLE FOR PATIENT FINANCIALLY AND LEGALLY. [facility] STATED THAT THEY WANT ASSISTANCE PLACING PATIENT BUT DO NOT WANT ANY RESPONSIBILITY. [facility] STATED THAT HER MOTHER HAD MEDICAL AND THE ONLY WAY SHE IS NOT ACTIVE IT CAN BE BECAUSE PATIENT AND BOYFRIEND LET IT LAPSE AND NOT SUMMIT REQUIRED PAPER WORK. [facility] WANTS INFORMATION AND RESOURCES ABOUT REINSTATE OR EVEN APPLY FOR PATIENT'S MEDI-LISY. BECAUSE SHE IS SURE HER MOTHER HAD IT. I INFORM HER OF OFFICES TO GO AND HER NEED TO PROVIDE PATIENT'S INFORMATION, SUCH BANK STATEMENTS, SOURCES OF INCOME AND OTHER DOCUMENTATION REQUIRED. [facility] STATED NOT HAVING A CLUE IF PATIENT HAS A BANK ACCOUNT AND ALL DOCUMENTS. STATED "ALL I KNOW IS THAT SHE HAS MEDI-LISY BECAUSE SHE OWNS NOTHING" AND SHE PROBABLY HAD HER MEDI-LISY LAPSE BECAUSE SHE DO NOT TAKE CARE OF THINGS" I ALSO INFORM [employer] THAT A CALL TO [facility] FROM [facility] HAS BEEN DONE FROM ME TO ASSIST WITH PLACING PATIENT AND SHE HAS ASKED FOR [employer] TO CONTACT HER TO DISCUSS THEIR OPTIONS. I PROVIDED HER WITH [facility]'S CONTACT AND [employer] AGREED TO CALL HER AND ENDED CALL.
--- NOTE | 2017-04-18 18:00 | NUR ---
ASSISTED PATIENT ON TO BEDPAN AND CLEANED PATIENT AFTERWARDS. NO DISTRESS NOTED. PAIN WITHIN TOLERABLE AT THIS TIME. SAFETY MEASURES IN PLACE, CALL LIGHT WITHIN REACH. WILL CONTINUE TO MONITOR.
--- NOTE | 2017-04-18 19:20 | NUR ---
RECEIVED REPORT FROM AM NURSE. PT RESTING IN BED, AOX2, FORGETFUL, CONFUSED AT TIMES, AMBULATES TO CHAIR WITH ASSIST, ABLE TO VERBALIZE NEEDS. SPO2 94% ON O2 2L NC, RR 22 EVEN AND UNLABORED. SCDs IN PLACE. IV ACCESS ASYMPTOMATIC, PATENT AND INTACT. IVF INFUSING WELL. DISCUSSED AND REVIEWED PLAN OF CARE WITH PT, PT STATED OK, WILL CONTINUE WITH CONSTANT REINFORCEMENT. ASSISTED PT TO BED WIN, PT HAS LARGE LOOSE BM, PT CLEANED. SACRAL/BUTTOCKS REDNESS NOTED. ALL NEEDS MET. SAFETY MEASURES ENSURED. CALL LIGHT WITHIN REACH.
[2017-04-18 20:00] VITALS: BP 128/87
--- NOTE | 2017-04-18 20:31 | NUR ---
ASSISTED PT TO BEDPAN, PT HAS LARGE LOOSE BM, BED LINENS CHANGED AND PT CLEANED WITH FAMILY LAW SPECIALIST. ADMINISTERED DUE MEDS WITH EDUCATION, PT VERBALIZED UNDERSTANDING, TOLERATED MEDS WELL. ALL NEEDS MET. IVF INFUSING WELL. SAFETY MEASURES ENSURED. CALL LIGHT WITHIN REACH.
--- NOTE | 2017-04-18 23:55 | NUR ---
PT C/O PAIN. SEE PAIN ASSESSMENT. ADMINISTERED NORCO PO PRN ORDERED WITH EDUCATION, PT STATED OK. ALL NEEDS MET. SAFETY MEASURES ENSURED. CALL LIGHT WITHIN REACH.
[2017-04-19] VITALS: BP 133/85
[2017-04-19] MEDS: ZOLPIDEM 5 MG TAB PO PRN (03:49)
[2017-04-19] MEDS: methylPREDNISolone SS 40 MG/ML VIAL IVP SCH ×2 (04:01→13:51)
--- NOTE | 2017-04-19 04:10 | NUR ---
PT C/O INSOMNIA, ADMINISTERED AMBIEN PO PRN ORDERED WITH EDUCATION. ADMINISTERED DUE MED SOLUMEDROL IVP ORDERED WITH EDUCATION. PT STATED "OK," TOLERATED MEDS WELL. ALL NEEDS MET. SAFETY MEASURES ENSURED. CALL LIGHT WITHIN REACH.
[2017-04-19] MEDS: ALBUTEROL SULFATE/IPRATROPIU 3 ML SOL IH SCH ×2 (06:34→13:37)
--- NOTE | 2017-04-19 07:09 | NUR ---
ENDORSED PLAN OF CARE TO AM NURSE. CONDITION STABLE.
--- NOTE | 2017-04-19 07:18 | NUR ---
RECEIVED PATIENT REPORT AT BEDSIDE FROM NIGHTSHIFT NURSE. PATIENT IS A&OX2. PATIENT SHOWS NO SIGNS OF RESPIRATORY DISTRESS OR DEPRESSION. BED LOWERED, SIGNS POSTED, AND SOCKS ARE BEING WORN BY PATIENT. PATIENT DOES NOT COMPLAIN OF PAIN AT THIS TIME. UPDATED BOARD IN PATIENT'S ROOM. ENCOURAGED PATIENT TO USE CALL LIGHT WHEN SHE NEEDS HELP. WILL CONTINUE TO MONITOR PATIENT.
[2017-04-19 08:00] VITALS: BP 138/67
[2017-04-19] MEDS: QUEtiapine FUMARATE 100 MG TAB PO SCH (09:00)
[2017-04-19] MEDS: MORPHINE TAB ER 30 MG TABER PO SCH (09:01)
[2017-04-19] MEDS: HYDROcodone/APAP 7.5/325 MG 1 TAB PO PRN ×2 (10:40→17:17)
[2017-04-19] MEDS: NACL 0.9% 1,000 ML IV SCH (12:48)
[2017-04-19] MEDS: NICOTINE TRANSD SYS 21 MG/24 HR PATCH TD SCH (15:14)
[2017-04-19] MEDS: LORazepam 0.5 MG TAB PO PRN (15:15)
--- NOTE | 2017-04-19 15:15 | NUR ---
CM NOTE [place] [facility] [place] [facility] [place] TO [address], NUMBER TO CALL FOR REPORT [phone]. PER ROXI FRI[place]MAN [place] THEY WILL SUBSTANCE ABUSE PREVENTION COORDINATOR PATIENT 1930 TIME TODAY GOING [place] [facility], CHARGE NURSE SAVANNAH AND JULIA LOPEZ.
[2017-04-19] MEDS ORDERED: ATI.5 PO (15:38)
[2017-04-19] MEDS ORDERED: QUET100T44 PO (15:38)
[2017-04-19] MEDS ORDERED: ZOLP5TAB1 PO (15:38)
[2017-04-19 15:45] VITALS: BP 113/76
--- NOTE | 2017-04-19 16:29 | NUR ---
I CALL PATIENT'S DAUGHTER AMENA AT TO DISCUSS PATIENT'S updated information in regards to [place] [facility] [place] and transportation been set up for about 19:30. I inform her that the MEDI-L[employer] still inactive therefore; process of applying will still be process and Amena and siblings will have to cooperate and provide documentation need when requested. She agreed to cooperate and will be providing information needed. Amena stated that she will be here at about the time Patient will be discharging and cook pickled meat by transport to take [place] [facility] [place] assist with transition of placement.
--- NOTE | 2017-04-19 17:49 | NUR ---
REPORT GIVEN TO JULIO CESAR HOUSER OF [facility] REGARDING PATIENT. [facility] IS AWARE OF ALL MEDICATIONS PATIENT IS BEING SENT HOME WITH. [facility] IS AWARE OF GRADES 1 6 TUTOR TIME FROM [facility].
[2017-04-19 17:52] VITALS: BP 113/76
--- NOTE | 2017-04-19 18:15 | NUR ---
DAUGHTER ESME CALLED TO NOTIFY THAT PT IS TRANSFERING [place] [facility] [place], DAUGHTER WILL TRY TO BE HERE AT THE TIME OF TRANSFER.
--- NOTE | 2017-04-19 19:47 | NUR ---
REPORT GIVEN TO DAY WORKER NURSE [facility] MENDE[facility]'S HOME MED MORPHINE LIQUID BOTTLE GIVEN TO VANESSA SAAVEDRA, PT IN STABLE CONDITION.
[2017-04-19 21:15] VITALS: BP 121/81
--- NOTE | 2017-04-19 21:15 | NUR ---
SEEN PT AWAKE, ALERT AND ORIENTED. INITIAL ASSESSMENT DONE. VITAL SIGNS CHECKED. PT [place] V[place] WHEELCHAIR FROM [place].
== END 2017-04-19 21:15 | DRG 189 ==
LOC: MED 15:25 → UNDOADMIN 17:42 → MTU 17:42
PROVIDERS: ADMIT Student in an Organized Health Care Education/Training Program; ATTEND Student in an Organized Health Care Education/Training Program
DX: J96.21 Acute and chronic respiratory failure with hypoxia (principal); N17.0 Acute kidney failure with tubular necrosis; G93.41 Metabolic encephalopathy; E44.0 Moderate protein-calorie malnutrition; R64 Cachexia; J44.1 Chronic obstructive pulmonary disease with (acute) exacerbation; F11.20 Opioid dependence, uncomplicated; W01.198A Fall on same level from slipping, tripping and stumbling with subsequent striking against other object, initial encounter; J96.22 Acute and chronic respiratory failure with hypercapnia; S60.511A Abrasion of right hand, initial encounter; E78.5 Hyperlipidemia, unspecified; F03.90 Unspecified dementia, unspecified severity, without behavioral disturbance, psychotic disturbance, mood disturbance, and anxiety; F10.11 Alcohol abuse, in remission; F17.210 Nicotine dependence, cigarettes, uncomplicated; F31.9 Bipolar disorder, unspecified; F41.1 Generalized anxiety disorder; G89.29 Other chronic pain; F29 Unspecified psychosis not due to a substance or known physiological condition; Y92.238 Other place in hospital as the place of occurrence of the external cause; Z99.81 Dependence on supplemental oxygen; Y93.89 Activity, other specified; Z68.20 Body mass index [BMI] 20.0-20.9, adult; Z83.3 Family history of diabetes mellitus; Z80.3 Family history of malignant neoplasm of breast; Z87.81 Personal history of (healed) traumatic fracture; Y99.8 Other external cause status
CPT/HCPCS: 36415; 36600; 70450; 71045; 73130; 80048; 80053; 80305; 81001; 82150; 82803; 83036; 83690; 83735; 83880; 84100; 84439; 84443; 84484; 85025; 85610; 85730; 87040; 87081; 87086; 93005; 94640; 97110; 97116; 97530; 99285; J2405; J2920; J2930; J7030; J7620; Q0092

== ENCOUNTER 2017-05-04 18:46 | Emergency (ER) | payer OTHER ==
[~2017-05-04] VITALS: Ht 157.5 cm; Wt 54.4 kg
[~2017-05-04 18:46] MED LIST changes: +ATI.5 PO; +BECL0.0464 INH; +PRED10TA5 PO; +QUET100T44 PO; +ZOLP5TAB1 PO
--- NOTE | 2017-05-04 18:46 | NUR ---
PT PLACED IN BED 10
[2017-05-04 18:50] VITALS: BP 126/73
--- NOTE | 2017-05-04 19:00 | NUR ---
RECEIVED REPORT FROM SHARLA SAAVEDRA. TRANSFER OF CARE AT THIS TIME.
--- NOTE | 2017-05-04 19:02 | NUR ---
PATIENT IS A 71 Y/O FEMALE BIB [facility] WHO PRESENTS TO THE ED C/O FINGER PAIN. PT STATES, "MY THUMB HAS BEEN HURTING." PT APPEARS TO BE IN 8/10 ACHING RIGHT FINGER PAIN THAT DOES NOT RADIATE. NOTED RIGHT BUMP TO THE RIGHT THUMB. PT DENIES CP, SOB, N/V/D. PT IS AAOX2, RR EVEN/UNLABORED. PT REPOSITIONED FOR COMFORT, BED IN LOWEST POSITION. ER MD DR. MASON NOTIFIED. WILL CONTINUE TO MONITOR. Addendum: 05/04/17 at 1937 by MEDDCV PATIENT IS A 71 Y/O FEMALE BIB [facility] WHO PRESENTS TO THE ED C/O FINGER PAIN. DAUGHTER WANTED TO BRING TO ER FOR EVALUATION. PT STATES, "MY THUMB HAS BEEN HURTING." PT APPEARS TO BE IN 8/10 ACHING RIGHT FINGER PAIN THAT DOES NOT RADIATE. NOTED RIGHT BUMP TO THE RIGHT THUMB. PT DENIES CP, SOB, N/V/D. PT IS AAOX2, RR EVEN/UNLABORED. PT REPOSITIONED FOR COMFORT, BED IN LOWEST POSITION. ER MD DR. MASON NOTIFIED. WILL CONTINUE TO MONITOR. RX---KEFLEX STARTED TODAY.
[2017-05-04] MEDS ORDERED: ACETAMINOPHEN EXTRA STRENGTH 500 MG TAB ONE (19:04)
[2017-05-04] MEDS ORDERED: ASCO500T45 PO (19:33)
[2017-05-04] MEDS ORDERED: POTA10TE30 PO (19:33)
[2017-05-04] MEDS ORDERED: MSCON30 PO (19:33)
[2017-05-04] MEDS ORDERED: CRAN400C2 PO (19:33)
[2017-05-04] MEDS ORDERED: FURO-572 PO (19:33)
[2017-05-04] MEDS ORDERED: CEPH250C16 PO (19:33)
[2017-05-04] MEDS ORDERED: MORPHINE SULFATE 2 MG/ML SYR IM ONE (21:05)
--- NOTE | 2017-05-04 22:00 | NUR ---
CALLED REPORT TO KERI PORTILLO.
[2017-05-04 22:26] VITALS: BP 140/76
--- NOTE | 2017-05-04 22:26 | NUR ---
Patient discharged with v/s stable. Written and verbal after care instructions given and explained. Patient verbalized understanding. Ambulance Transport with to residential. All questions addressed prior to discharge. Advised to follow up with PMD.
== END 2017-05-04 22:26 | disposition home or self-care (01) ==
LOC: MED 18:46
DX: L02.511 Cutaneous abscess of right hand (principal); F17.210 Nicotine dependence, cigarettes, uncomplicated; J44.9 Chronic obstructive pulmonary disease, unspecified; F03.90 Unspecified dementia, unspecified severity, without behavioral disturbance, psychotic disturbance, mood disturbance, and anxiety; F31.9 Bipolar disorder, unspecified; Z79.899 Other long term (current) drug therapy
CPT/HCPCS: 10060; 96372; 99283; J2270

== ENCOUNTER 2018-03-22 13:51 | Emergency (ER) | payer OTHER ==
[~2018-03-22] VITALS: Ht 154.9 cm; Wt 54.4 kg
[~2018-03-22 13:51] MED LIST changes: +ASCO500T45 PO; -ATI.5 PO; +CEPH250C16 PO; +CRAN400C2 PO; +FURO-572 PO; +POTA10TE30 PO; -PRED10TA5 PO
--- NOTE | 2018-03-22 13:51 | NUR ---
PATIENT TAKEN BY EMS TO ER BED 10
[2018-03-22 13:55] VITALS: BP 132/68
--- NOTE | 2018-03-22 14:07 | NUR ---
AAO X4 patient bib ems from [facility] in [place] with c/o high Potassium 5.6 drawn on 03/20/2018
[2018-03-22] MEDS ORDERED: NACL 0.9% 1,000 ML IV SCH (14:08)
[2018-03-22] MEDS ORDERED: ALBUTEROL SULFATE/IPRATROPIU 3 ML SOL IH ONE (14:10)
--- NOTE | 2018-03-22 14:25 | NUR ---
[facility] THERAPY GIVEN ORDERED
[2018-03-22 14:49] LABS: BASOPHILS % (AUTO) 0.7 % (0.0-2.0); EOSINOPHILS # (AUTO) 0.1 K/uL (0-0.4); EOSINOPHILS % (AUTO) 2.5 % (0.0-4.0); HEMATOCRIT 42.5 % (36-48); HEMOGLOBIN 13.5 g/dL (12.0-16.0); LYMPHOCYTES % (AUTO) 16.8 % (20.5-51.1); MEAN CORPUSCULAR HEMOGLOBIN 27 pg (27-31); MEAN CORPUSCULAR HGB CONC 32 g/dL (33-37); MONOCYTES # (AUTO) 0.4 K/uL (0.8-1.0); MONOCYTES % (AUTO) 6.7 % (1.7-9.3); NEUTROPHILS # (AUTO) 4.3 K/uL (1.8-7.7); NEUTROPHILS % (AUTO) 73.3 % (42.2-75.2); PLATELET COUNT (AUTO) 140 K/uL (140-450); RED BLOOD CELL COUNT(AUTO) 4.95 MIL/uL (4.20-5.40); RED CELL DISTRIBUTION WIDTH 15.5 % (11.6-13.7); WHITE BLOOD COUNT (AUTO) 5.9 K/uL (4.8-10.8)
[2018-03-22 15:05] LABS: ANION GAP 6.1 (8-16); CARBON DIOXIDE 34.6 mmol/L (21-32); CHLORIDE 102 mmol/L (98-107); CREATININE 0.8 mg/dL (0.6-1.3); GLUCOSE 131 mg/dL (74-106); POTASSIUM 4.7 mmol/L (3.5-5.1); SODIUM SERUM 138 mmol/L (136-145); UREA NITROGEN, BLOOD 21 mg/dL (7-18)
[2018-03-22 15:09] LABS: ACETONE, SERUM NEGATIVE (NEGATIVE)
[2018-03-22 15:11] LABS: ALBUMIN 3.4 g/dL (3.4-5.0); ASPARTATE AMINOTRANSFERASE 16 U/L (15-37); MAGNESIUM 2.1 mg/dL (1.8-2.4); TOTAL BILIRUBIN 0.4 mg/dL (0.0-1.0); URIC ACID 4.1 mg/dL (2.6-7.2)
[2018-03-22 15:12] LABS: PROTHROMBIN TIME 9.7 secs (10.8-13.4)
--- NOTE | 2018-03-22 15:30 | NUR ---
PATIENT RESTING; DAUGHTER AT BEDSIDE; VSS
--- NOTE | 2018-03-22 17:30 | NUR ---
PATIENT RESTING; VSS; DAUGHTER AT BEDSIDE
--- NOTE | 2018-03-22 18:16 | NUR ---
Patient discharged with v/s stable. Written and verbal after care instructions given and explained. Patient verbalized understanding. Ambulance Transport with to snf. All questions addressed prior to discharge. Advised to follow up with PMD.
[2018-03-22 18:19] VITALS: BP 123/66
[2018-03-22 19:12] LABS: APPEARANCE,URINE CLEAR (CLEAR); BILIRUBIN,URINE NEGATIVE (NEGATIVE); BLOOD, URINE NEGATIVE (NEGATIVE); COLOR,URINE YELLOW (YELLOW); LEUKOCYTE ESTERASE ,URINE NEGATIVE (NEGATIVE); NITRITE, URINE NEGATIVE (NEGATIVE); PH,URINE 7.5 (5.0-9.0); UGLUCOSE NEGATIVE (NEGATIVE)
== END 2018-03-22 18:16 | disposition home or self-care (01) ==
LOC: MED 13:51
DX: J44.1 Chronic obstructive pulmonary disease with (acute) exacerbation (principal); F03.90 Unspecified dementia, unspecified severity, without behavioral disturbance, psychotic disturbance, mood disturbance, and anxiety; I10 Essential (primary) hypertension; Z79.2 Long term (current) use of antibiotics; Z79.891 Long term (current) use of opiate analgesic; Z79.899 Other long term (current) drug therapy
CPT/HCPCS: 36415; 71045; 80053; 81003; 82009; 83735; 84550; 85025; 85610; 85730; 93005; 94640; 99284; J7620; Q0092